=== PATIENT | male | born 1950 | race Caucasian/White ===

== ENCOUNTER 2016-08-28 15:24 | Inpatient (IN) ==
--- NOTE | 2016-08-28 15:47 | Emergency Department Note ---
Disposition Clinical Impression: Acute renal failure, Cough, Diabetes, Weakness, Anemia, Frail elderly, Hyperkalemia Disposition: Admitted As Inpatient [facility]Primary Care Provider[facility] - Forms: ED Satisfaction Letter General Adult HPI - General Chief complaint: ED Recheck/Abnormal Lab/Rx Stated complaint: Renal failure Time Seen by Provider: 08/28/16 15:45 Source: patient, EMS Limitations: no limitations - History of Present Illness HPI Narrative: 66-year-old male reports an emergency department from the [facility]. The patient reports is been feeling weak for the last several days. Testing was done at the Center which revealed what appears to be acute renal failure. The patient describes a previous history of renal insufficiency, there is no history of dialysis in the past. The patient has been somewhat weaker and feels generally tremulous or spasmodic. The patient denies shortness of breath but he has had a cough, he reports his upper abdomen hurts when he coughs. There is no history of coughing up juliet blood leg swelling or pain or syncope. There is no history of anterior chest pain left arm and left jaw pain. There is no history of trauma however the patient reports he felt weak and fell down. There is no history of headache, the patient is not anticoagulated. No trouble walking talking hearing seeing or speaking or slurred speech or unilateral arm weakness or numbness. The patient states he had a remote CVA requiring rehabilitation secondary to right arm weakness. There is no history of juliet fever vomiting or bloody stool he reports he had a few episodes of diarrhea. No history of rash or back pain. No confusion. The patient has been generally weak, went to the [facility], and was noticed to be in acute renal failure. He was transferred to [place] for further evaluation and/or admission. Pain Scale: 5 - Related Data Home Medications Medication Instructions Recorded Confirmed Aspirin 81 mg PO DAILY 08/28/16 08/28/16 Gabapentin [Neurontin] 900 mg PO TID 08/28/16 08/28/16 Hydrochlorothiazide [Microzide] 12.5 mg PO DAILY 08/28/16 08/28/16 Lisinopril [Zestril] 20 mg PO DAILY 08/28/16 08/28/16 Metoprolol XL (24 HR) Succ [Toprol 50 mg PO DAILY 08/28/16 08/28/16 XL] Mupirocin [Bactroban Oint] 1 appl TP TID 08/28/16 08/28/16 Naproxen [Naprosyn] 500 mg PO BID 08/28/16 08/28/16 [place]-3/Dha/Epa/Fish Oil [Fish Oil 1,000 mg PO DAILY 08/28/16 08/28/16 1,000 mg Softgel] Omeprazole [PriLOSEC] 20 mg PO DAILY 08/28/16 08/28/16 Rosuvastatin [Crestor] 40 mg PO HS 08/28/16 08/28/16 Sertraline [Zoloft] 200 mg PO DAILY 08/28/16 08/28/16 Temazepam [Restoril] 15 mg PO HS 08/28/16 08/28/16 Allergies Allergy/AdvReac Type Severity Reaction Status Date / Time Iodinated Contrast Media - AdvReac Anaphylaxis Verified 09/27/15 23:59 Oral and simvastatin AdvReac Cramping Verified 09/27/15 23:59 of the Muscles All systems ED: reviewed and negative except as stated. Past Medical History - Past Medical History Medical history: Reports: coronary artery disease, CVA, diabetes, hyperlipidemia , hypertension, other Psychiatric history: Reports: PTSD - Social History Smoking Status: Former smoker Smokeless Tobacco Status: No Alcohol use: Reports: rarely Drug use: Reports: none Physical Exam - General Limitations: no limitations General appearance: alert, in no apparent distress - Head Head exam: atraumatic, normocephalic, normal inspection - Eye Eye exam: Present: normal appearance, PERRL, EOMI - ENT ENT exam: normal exam, normal oropharynx, mucous membranes moist - Neck Neck exam: Present: normal inspection, full ROM, trachea midline. Absent: tenderness - Chest Chest inspection: Present: symmetric chest wall rise. Absent: tenderness - Respiratory Respiratory exam: Present: normal lung sounds bilaterally. Absent: respiratory distress - Cardiovascular Cardiovascular exam: Present: regular rate, normal rhythm, normal heart sounds - Abdominal Exam Abdominal exam: Present: soft, Non-Tender, normal bowel sounds. Absent: tenderness, distention, guarding, rebound, rigidity, pulsatile mass - Extremities Exam Extremities exam: Present: normal inspection, full ROM, normal capillary refill. Absent: tenderness, pedal edema, joint swelling, calf tenderness - Expanded Lower Extremity Exam Lower leg exam: Absent: Homans' sign Neurovascular/Tendon exam: Absent: motor deficit, sensory deficit, tendon deficit, extremity cold to touch, pallor - Back Exam Back exam: Present: normal inspection, full ROM. Absent: tenderness, CVA tenderness (R), CVA tenderness (L), vertebral tenderness - Neurological Exam Neurological exam: Present: alert, oriented X3, CN II-XII intact. Absent: motor sensory deficit - Psychiatric Psychiatric exam: Present: normal affect, normal mood - Skin Skin exam: Present: warm, dry, intact, normal color. Absent: rash, cyanosis, diaphoresis, erythema, pallor, mottled Course Vital Signs Temperature 98.8 F 08/28/16 15:38 Pulse Rate 64 08/28/16 15:38 Respiratory Rate 14 08/28/16 15:38 Blood Pressure 105/69 08/28/16 15:38 O2 Sat by Pulse Oximetry 94 L 08/28/16 15:38 Temperature 98.8 F 08/28/16 15:38 Pulse Rate 64 08/28/16 15:38 Respiratory Rate 14 08/28/16 15:38 Blood Pressure 105/69 08/28/16 15:38 O2 Sat by Pulse Oximetry 94 L 08/28/16 15:38 Oxygen Delivery Oxygen Delivery Room Air Medical Decision Making - [facility] Narrative Medical decision making narrative: He patient's EKG and [facility], significant elevation in the creatinine in the 6 range as noted. Previous labs here indicate a creatinine of 1.88 about a year ago. The patient is elderly, diabetic, has a history of cardiovascular disease, he has been weak, he is hyperkalemic, and in apparent acute renal failure, in association with his his age, comorbidities, and marked lab lab abnormalities, I thought it would be a appropriate to admit the patient to the hospital. I have reviewed the case with the hospitalist on- call. Further evaluation, diagnostics, and treatment per the admitting team. - Lab Data Lab results reviewed: Yes I reviewed the patient's lab results.
[2016-08-28] MEDS ORDERED: 0.9 % Sodium Chloride 1,000 ML IVC SCH (16:15)
[2016-08-28] MEDS ORDERED: 0.9 % Sodium Chloride 1,000 ML IVC ONE (17:02)
--- NOTE | 2016-08-28 17:43 | Internal Med History&Physical ---
Date of Encounter: 08/28/16 Time of Encounter: 17:40 Assessment and Plan (1) CAD (coronary artery disease) Current visit: Yes Status: Acute no chest pain Qualifiers: Coronary Disease-Associated Artery/Lesion type: unspecified vessel or lesion type [place] vs. transplanted heart: unspecified whether [place] or transplanted heart Associated angina: without angina Qualified Code(s): I25.10 - Atherosclerotic heart disease of [place] coronary artery without angina pectoris (2) Diabetes Current visit: Yes Status: Chronic Qualifiers: Diabetes mellitus type: type 2 Diabetes mellitus complication status: with unspecified complications Diabetes mellitus half-way insulin use: unspecified technical specialist cytogenetics insulin use status Qualified Code(s): E11.8 - Type 2 diabetes mellitus with unspecified complications (3) Acute renal failure Current visit: Yes Status: Acute acute renal failure in diabetic patient last year creatinine was 1.8 consult nephrology and start on iv hydration Qualifiers: Acute renal failure type: unspecified Qualified Code(s): N17.9 - Acute kidney failure, unspecified (4) Diabetes Current visit: Yes Status: Chronic will resume home meds and sliding scale Qualifiers: Diabetes mellitus type: type 2 Diabetes mellitus complication status: with unspecified complications Diabetes mellitus half-way insulin use: unspecified half-way insulin use status Qualified Code(s): E11.8 - Type 2 diabetes mellitus with unspecified complications (5) Hyperkalemia Current visit: Yes Status: Acute check in am Internal Medicine - H&P: HPI Chief complaint: renal failure Admitted From: Intrahospital Transfer Plans for Post Hospital Care: Home History of present illness: Mr. Bowman is a 66 year old male Patient with history of CAD had a CAB vesssels CVA, diabetes, hypercholesterol, hypertension, PTSD and some dementia patient went to the [facility] because he was feeling weak and tired and fatigue and some some cough sometimes productive, sometime is clear no fever or chills labs showed a creatinine above 6.5 last creatinine here was 1.8 and was then sent to the emergency room here for follow evaluation denies any fever or chills . he still makes urine no chest pain. Past Med Surg Social Fam HX - Past Medical History Medical history: coronary artery disease, CVA, diabetes, hyperlipidemia, hypertension, other Psychiatric history: PTSD - Past Surgical History Surgical History: coronary bypass (CABG) - Social History Smoking Status: Former smoker Smokeless Tobacco Status: No Alcohol use: rarely Drug use: none Internal Medicine - H&P: Meds Aspirin 81 mg PO DAILY 08/28/16 [History] Gabapentin [Neurontin] 900 mg PO TID 08/28/16 [History] Hydrochlorothiazide [Microzide] 12.5 mg PO DAILY 08/28/16 [History] Lisinopril [Zestril] 20 mg PO DAILY 08/28/16 [History] Metoprolol XL (24 HR) Succ [Toprol XL] 50 mg PO DAILY 08/28/16 [History] Mupirocin [Bactroban Oint] 1 appl TP TID 08/28/16 [History] Naproxen [Naprosyn] 500 mg PO BID 08/28/16 [History] [place]-3/Dha/Epa/Fish Oil [Fish Oil 1,000 mg Softgel] 1,000 mg PO DAILY 08/28/16 [History] Omeprazole [PriLOSEC] 20 mg PO DAILY 08/28/16 [History] Rosuvastatin [Crestor] 40 mg PO HS 08/28/16 [History] Sertraline [Zoloft] 200 mg PO DAILY 08/28/16 [History] Temazepam [Restoril] 15 mg PO HS 08/28/16 [History] Allergies Iodinated Contrast Media - Oral and Adverse Reaction (Verified 09/27/15 23:59) Anaphylaxis simvastatin Adverse Reaction (Verified 09/27/15 23:59) Cramping of the Muscles All Systems PM: A 10-system review of systems was performed and is negative for pertinent findings except as documented above in the HPI. - Constitutional Constitutional: anorexia, fatigue, lethargy - EENT Eyes: no change in vision, no discharge, no pain, no photophobia Ears: no ear discharge, no ear pain, no tinnitus Nose, mouth and throat: no dysphagia, no nasal discharge, no neck pain, no sore throat - Cardiovascular Cardiovascular ROS IM: no chest pain, no diaphoresis, no dyspnea, no lightheadedness, no palpitations, no syncope - Respiratory Respiratory: cough - Gastrointestinal Gastrointestinal: no abdominal pain, no diarrhea, no hematemesis, no hematochezia, no melena, no nausea, no vomiting - Musculoskeletal Musculoskeletal ROS IM: no numbness, no tingling - Constitutional Vitals: Temp Pulse Resp BP Pulse Ox 98.8 F 64 14 105/69 94 L 08/28/16 15:38 08/28/16 15:38 08/28/16 15:38 08/28/16 15:38 08/28/16 15:38 - Head Head exam: Present: atraumatic, normocephalic - Eye Eye exam: Present: PERRL, conjuntiva pink, sclera anicteric Pupils: Present: PERRL - Neck Neck exam general surgery: Present: supple, trachea midline. Absent: lymphadenopathy - Respiratory Respiratory exam: Present: rhonchi - Cardiovascular Cardiovascular exam: Present: RRR, +S1, +S2. Absent: diastolic murmur, gallop, rubs, systolic murmur - GI/Abdominal GI/Abdominal exam: Present: normal bowel sounds, soft, no peritoneal signs. Absent: distended, tenderness Internal Med - H&P Results - Impressions ITS Impressions Chest X-Ray 08/28/16 15:48 IMPRESSION: No acute cardiopulmonary process. Stable chest x-ray. D/ / 08/28/2016 16:41:20 Radha Yepez MD / earnold Interpreting Provider: Radha Yepez MD
[2016-08-28] MEDS ORDERED: MOM Conc 10 ML UD.LIQ PO PRN (17:50)
[2016-08-28] MEDS ORDERED: Naloxone 0.4 MG/ML INJ IVP PRN (17:50)
[2016-08-28] MEDS ORDERED: D5% in Water 1,000 ML IVC PRN (17:56)
[2016-08-28] MEDS ORDERED: *HR* Dextrose 50 % in Water (Syg) 50 ML SYRINGE IVP PRN (17:56)
[2016-08-28] MEDS ORDERED: Dextrose Gel 15 GM PO PRN ×2 (17:56)
[2016-08-28 18:12] LABS: Bilirubin,Urine Negative (Negative); Blood,Urine Small (Negative); Clarity,Urine Cloudy (Clear); Color,Urine Yellow (Yellow); Glucose,Urine (UA) Normal (Normal); Ketones,Urine Negative (Negative); Leukocyte Esterase,Urine Negative (Negative); Nitrite,Urine Negative (Negative); PH,Urine 5.5 pH Units (5.0-8.0); Protein,Urine 30 mg/dL (Neg-Trace); Specific Gravity,Urine 1.018 (1.010-1.025); Urobilinogen,Urine Normal (Normal)
[2016-08-28 18:14] LABS: Bacteria,Urine None Seen per hpf (None-Few); Hyaline Casts,Urine None Seen per lpf (None-Few); Squamous Epithelial Cell,Urine Many per lpf (None-Few)
[2016-08-28 18:26] LABS: Amorphous Sediment,Urine Few (Few)
[2016-08-28] MEDS ORDERED: Insulin LISPRO 300 UNITS/3 ML VIAL SQ SCH (21:00)
[2016-08-28] MEDS ORDERED: Gabapentin 300 MG CAPSULE PO SCH (21:00)
[2016-08-28] MEDS: 0.9 % Sodium Chloride 1,000 ML IVC SCH (21:53)
[2016-08-28] MEDS: Temazepam 15 MG CAPSULE PO SCH (21:58)
[2016-08-29] MEDS ORDERED: *HR* Enoxaparin 40 MG/0.4 ML SYRINGE SQ SCH (06:00)
[2016-08-29 06:44] LABS: Hemoglobin 10.9 g/dL (12.9-16.9); Mean Corpuscular HGB Conc 32.1 g/dL (31.6-35.5); Mean Corpuscular Hemoglobin 28.7 pg (28.0-33.3); Mean Corpuscular Volume 89.5 fL (83.0-100.0); Mean Platelet Volume 9.2 fL (9.4-12.4); Platelet Count 179 K/mcL (140-400); Red Cell Distribution Width 14.8 % (11.5-14.5)
[2016-08-29 06:57] LABS: Albumin/Globulin Ratio 0.4 (1.1-2.2); Bilirubin,Total 0.3 mg/dL (0.2-1.2); Calcium 9.1 mg/dL (8.6-10.8); Chol/HDL Ratio 11.4 (0-4.9); Globulin 4.4 g/dL (2.4-3.5); Magnesium 1.4 mg/dL (1.6-2.6); Potassium 5.2 mEq/L (3.5-4.5); Total Protein 6.2 g/dL (6.0-8.3)
[2016-08-29 06:58] LABS: Albumin 1.8 g/dL (3.5-5.0)
[2016-08-29] MEDS ORDERED: Insulin LISPRO 300 UNITS/3 ML VIAL SQ SCH (07:30)
[2016-08-29] MEDS ORDERED: (Omega-3/Dha/Epa/Fish Oil [Fish Oil 1,000 Mg Softgel) PO SCH (09:00)
[2016-08-29] MEDS: Gabapentin 100 MG CAPSULE PO SCH ×3 (09:15→21:30)
[2016-08-29] MEDS: Metoprolol XL (24 HR) Succ 50 MG TAB.ER.24H PO SCH (09:15)
[2016-08-29] MEDS: Aspirin 81 MG TAB.CHEW PO SCH (09:15)
[2016-08-29] MEDS: 0.9 % Sodium Chloride 1,000 ML IVC SCH ×2 (10:30→16:06)
[2016-08-29 11:54] LABS: Hemoglobin A1C 5.8 %
[2016-08-29] MEDS: Insulin LISPRO 300 UNITS/3 ML VIAL SQ SCH ×3 (11:58→21:35)
--- NOTE | 2016-08-29 13:55 | Internal Med Progress Note ---
Date of Encounter: 08/29/16 Time of Encounter: 13:52 - Assessment and plan (1) Acute renal failure Current Visit: Yes Status: Acute Assessment and plan: worsened renal fxn compared to last. creatinine today at 5.2 from 1.8 will get records from OR. unclear is this is worsening CKD or acute on chronic renal failure. most likely acute as he recently describes a viral infection. noted good urine output. will follow renal US, continue IVF , avoid nephrotoxins. will order ECHO. will follow with nephrology for further recommendations. Qualifiers: Acute renal failure type: unspecified Qualified Code(s): N17.9 - Acute kidney failure, unspecified (2) Hyperkalemia Current Visit: Yes Status: Acute Assessment and plan: 2/2 acute renal failure 5.2 today, will monitro and repeat tomm morn. (3) CAD (coronary artery disease) Current Visit: Yes Status: Acute Assessment and plan: will continue the asa,bb and statin. denies any chest pain at this time Qualifiers: Coronary Disease-Associated Artery/Lesion type: unspecified vessel or lesion type [place] vs. transplanted heart: unspecified whether [place] or transplanted heart Associated angina: without angina Qualified Code(s): I25.10 - Atherosclerotic heart disease of [place] coronary artery without angina pectoris - Time Spent With Patient 25 - 35 minutes - Subjective Interval history: Patient seen at the bedside, admitted for acute renal failure. at the bedside, gives history of recent cold and generalized weakness. No history of decreased urine output or hematuria. Denies any fever, nausea or vomiting. History of diarrhea for a couple of days before admission, however that has stopped. Renal has been consulted for possible acute on chronic renal failure. - Constitutional Vitals: Temp Pulse Resp BP Pulse Ox 99.1 F 73 18 105/53 94 L 08/29/16 11:14 08/29/16 11:14 08/29/16 11:14 08/29/16 11:14 08/29/16 11:14 General appearance: Present: A&O X 3, no acute distress Exam: - Eye Eye exam: Present: PERRL, conjuntiva pink, sclera anicteric Pupils: Present: PERRL - Neck Neck exam general surgery: Present: supple, trachea midline. Absent: lymphadenopathy - Respiratory Respiratory exam: Present: b/l clear, no added sounds - Cardiovascular Cardiovascular exam: Present: RRR, +S1, +S2. Absent: diastolic murmur, gallop, rubs, systolic murmur - GI/Abdominal GI/Abdominal exam: Present: normal bowel sounds, soft, no peritoneal signs. Absent: distended, tenderness ext- no edema Internal Medicine: Result - Labs CBC & Chem 7: 08/29/16 06:09 08/29/16 06:09 Labs: Short CBC 08/29/16 Range/Units 06:09 WBC 9.5 (4.3-11.1) K/mcL Hgb 10.9 L (12.9-16.9) g/dL Hct 34.0 L (37.5-50.1) % Plt Count 179 (140-400) K/mcL BMP 08/29/16 06:09 Sodium 138 Potassium 5.2 H Chloride 107 Carbon Dioxide 19 BUN 73 H Creatinine 5.23 H Glucose 136 H Calcium 9.1 Liver Function 08/29/16 Range/Units 06:09 Total Bilirubin 0.3 (0.2-1.2) mg/dL AST 72 H (5-34) Units/L ALT 38 (0-55) Units/L Alkaline Phosphatase 64 (38-126) Units/L Albumin 1.8 L (3.5-5.0) g/dL Consult Discharge Plan - Plan [facility]errals: [facility] [Primary Care Provider] -
--- NOTE | 2016-08-29 14:17 | Nephrology Consult Note ---
Date of Encounter: 08/29/16 Time of Encounter: 11:30 Assessment and Plan (1) ANASTACIA (acute kidney injury) Current Visit: Yes Status: Acute Elevated SCr in the setting of recent viral infection. May have underlying CKD as well Agree with IVF, UOP improving Avoid nephrotoxins if possible No acute indication for HIDE SPREADER at this time but discussed at [facility] with patient and the possibility Will obtain US of kidney Will check urine for sodium, eosinophils, microalbumin and protein with creatinie ratio Will check CPK and uric acid levels Will SPEP and UPEP Will check PTH and vitamin D evels Will check STEVE and complements (2) Hyperkalemia Current Visit: Yes Status: Acute Potassium elevated at 5.2 due to ANASTACIA, renal diet advised History of Present Illness - Reason for Consult Consult date: 08/29/16 Acute Kidney Injury, Chronic Kidney Disease Requesting physician: Bradley Dwyer - History of Present Illness 66 y o male with PMH of DM< HTN, CAD s/p CABD, CVA and ?CKD admitted as a transfer from the [facility] where he presented for worsening fatigue and dizziness for the past week. Per , patient had been taking care of her when she was sick with URI some 2-3 weeks and he subsequently developed similar symptoms a wek after but got progressively weaker in the week. SCr noted at 6.5 at the [facility] improving to 5.8, GFR 13 today. Previous records at [place] some 5 years ago noted SCr at 1.8. Patient denied any prior nephrology contact or any renal dysfunction in the recent past but does remember back in 2008 that he had ANASTACIA. No urinary sxs. No NSAIDs use. No N/V but one day of diarrhea Past Med Surg Social Fam HX - Past Medical History Medical history: coronary artery disease, diabetes, hyperlipidemia, hypertension , other Psychiatric history: PTSD - Past Surgical History Surgical History: coronary bypass (CABG) - Social History Smoking Status: Former smoker Smokeless Tobacco Status: No Alcohol use: none, rarely Drug use: none Medications and Allergies Aspirin 81 mg PO DAILY 08/28/16 [History] Gabapentin [Neurontin] 900 mg PO TID 08/28/16 [History] Hydrochlorothiazide [Microzide] 12.5 mg PO DAILY 08/28/16 [History] Lisinopril [Zestril] 20 mg PO DAILY 08/28/16 [History] Metoprolol XL (24 HR) Succ [Toprol XL] 50 mg PO DAILY 08/28/16 [History] Mupirocin [Bactroban Oint] 1 appl TP TID 08/28/16 [History] Naproxen [Naprosyn] 500 mg PO BID 08/28/16 [History] [place]-3/Dha/Epa/Fish Oil [Fish Oil 1,000 mg Softgel] 1,000 mg PO DAILY 08/28/16 [History] Omeprazole [PriLOSEC] 20 mg PO DAILY 08/28/16 [History] Rosuvastatin [Crestor] 40 mg PO HS 08/28/16 [History] Sertraline [Zoloft] 200 mg PO DAILY 08/28/16 [History] Temazepam [Restoril] 15 mg PO HS 08/28/16 [History] Allergies Iodinated Contrast Media - Oral and Adverse Reaction (Verified 09/27/15 23:59) Anaphylaxis simvastatin Adverse Reaction (Verified 09/27/15 23:59) Cramping of the Muscles Exam - Vital Signs Vital signs: Initial Vital Signs Temp Pulse Resp BP Pulse Ox 98.8 F 64 14 105/69 94 L 08/28/16 15:38 08/28/16 15:38 08/28/16 15:38 08/28/16 15:38 08/28/16 15:38 Vital Signs - Last 8 Hours Temp Pulse Resp BP Pulse Ox 08/29/16 11:14 99.1 F 73 18 105/53 94 L 08/29/16 07:18 98.0 F 69 16 114/68 93 L Intake and Output 08/28/16 08/29/16 08/29/16 23:59 07:59 15:59 Intake Total 1000 / 1000 1240 / 1240 Output Total 500 / 500 1400 / 1400 600 / 600 Balance 500 / 500 -1400 / -1400 640 / 640 Intake: IV Fluids 1000 / 1000 1000 / 1000 0.9 % Sodium Chloride 1, 1000 / 1000 1000 / 1000 000 ML @ 100 mls/hr IVC . Q10H [facility] Rx#:[id number] Oral 240 / 240 Output: Urine 500 / 500 Catheter 1400 / 1400 600 / 600 Other: Meal Dinner Lunch Percent of Meal Consumed 100% 50% Weight 75.568 kg Blood Glucose* 108 137 403 - General Appearance General appearance: well-developed, well-nourished, fatigue EENT: ATNC, mucous membranes dry Neck: no JVD, supple Respiratory: clear (ant bilat) Cardiology: no edema, normal S1, normal S2 Gastrointestinal: no tenderness, no guarding Integumentary: warm and dry Musculoskeletal: no deformities Psychiatric: mood/affect appropriate, cooperative Results - Lab Results 08/29/16 06:09 08/29/16 06:09 Most recent lab results Calcium 9.1 mg/dL (8.6-10.8) 08/29/16 06:09 Magnesium 1.4 mg/dL (1.6-2.6) L 08/29/16 06:09 Consult Discharge Plan - Plan Referrals: [facility] [Primary Care Provider] -
[2016-08-29] MEDS: *HR* Heparin 5,000 UNIT/ML VIAL SQ SCH (16:54)
[2016-08-29] MEDS: Temazepam 15 MG CAPSULE PO SCH (21:30)
[2016-08-30 04:01] LABS: Bilirubin,Urine Negative (Negative); Blood,Urine Large (Negative); Clarity,Urine Cloudy (Clear); Color,Urine Yellow (Yellow); Glucose,Urine (UA) Normal (Normal); Ketones,Urine Negative (Negative); Leukocyte Esterase,Urine Negative (Negative); Nitrite,Urine Negative (Negative); Protein,Urine 30 mg/dL (Neg-Trace); Specific Gravity,Urine 1.013 (1.010-1.025); Urobilinogen,Urine Normal (Normal)
[2016-08-30 04:04] LABS: Hyaline Casts,Urine None Seen per lpf (None-Few); Squamous Epithelial Cell,Urine Few per lpf (None-Few); WBC,Urine 0-3 per hpf (0-3)
[2016-08-30 04:11] LABS: Protein/Creatinine Ratio,Urine 0.76 mg/mg (0-0.20)
[2016-08-30 04:25] LABS: Bacteria,Urine Few per hpf (None-Few)
[2016-08-30] MEDS: *HR* Heparin 5,000 UNIT/ML VIAL SQ SCH ×2 (06:27→17:09)
[2016-08-30] MEDS: Insulin LISPRO 300 UNITS/3 ML VIAL SQ SCH ×4 (07:17→21:55)
--- NOTE | 2016-08-30 08:42 | ECHO - Doppler Report ---
Echocardiogram Name: Derek Bowman Date of Study: 08/29/2016 Date: 1950 Ht: 68.0 in Medical Record#: [id number] Age: 66 Wt: 166.0 lb Gender: Male BSA: 1.89 Order #: [id number] Location: [facility] Room #: 2A12 Reading Physician: Rasta Oropeza MD, [facility] Physical Fitness Trainer: Graciela Gooden RDCS Ordering Physician: Charles Saul MD Primary Physician: [facility] Indications: Evaluate EF, Acute Renal Failure Impressions: Normal LV systolic function, LVEF 55-60%. Atypical septal motion consistent with prior cardiac surgery. Normal right ventricular size and function. No significant valvular dysfunction. No evidence of pulmonary hypertension. Left Ventricular Wall Motion: Rest Echo Findings All wall segments showed normal motion. Findings: Study Quality * Suboptimal echo windows. ECG Findings * Normal sinus rhythm. Left Ventricle * Normal LV systolic function, LVEF 55-60%. * Atypical septal motion consistent with prior cardiac surgery. * Normal LV chamber size, wall thickness and function. * Indeterminate diastolic function. Right Ventricle * Normal right ventricular size and function. Left Atrium * Normal left atrial size. Right Atrium * Normal right atrial size. Aorta * Normally sized aortic root. Pericardium * There is no pericardial effusion present. IVC * Normal IVC dimensions and inspiratory collapse. Aortic Valve * Trileaflet aortic valve. * No aortic stenosis. * No aortic regurgitation. Mitral Valve * Normal mitral valve structure. * No mitral stenosis. * Trace mitral regurgitation. Tricuspid Valve * Normal tricuspid valve structure. * No tricuspid stenosis. * Trace tricuspid regurgitation. * No evidence of pulmonary hypertension. Pulmonic Valve * Normal pulmonic valve structure. * No pulmonic stenosis. * No pulmonic regurgitation. History Hypertension Diabetes Hypercholesteremia History of CAD/PTCA Coronary Artery Bypass Graft Measurements: BP: 103/ 50 2D Normal Values RVIDd: 2.97 cm IVSd: .88 cm 0.6 - 1.0 cm LVIDd: 5.20 cm 3.7 - 5.6 cm LVPWd: .98 cm 0.6 - 1.1 cm LVIDs: 2.89 cm 1.5 - 3.6 cm AO: 2.90 cm < 4.0 cm %FS: 44.40 cm >25 % LA volume: 44 Mitral Valve Peak E:1.13 m/sec Peak A:1.08 m/sec E/A Ratio:1 Tricuspid Valve TV Regurg Peak Grad: 30.00mmHg TV Regurg Peak Buck: 2.76m/sec Updated by Rasta Oropeza MD, [facility] on 08/30/2016 8:36:16 AM electronically signed on 08/30/2016 8:36:46 AM with status of Final Wall Motion [place]: 1=Normal, 2=Hypokinesis, 3=Akinesis, 4=Dyskinesis, 5=Aneurysmal, 6=Hyperkinetic, X=Not Visualized (Blank)=Missing
[2016-08-30] MEDS: Aspirin 81 MG TAB.CHEW PO SCH (09:09)
[2016-08-30] MEDS: Gabapentin 100 MG CAPSULE PO SCH ×3 (09:10→21:53)
[2016-08-30] MEDS: Metoprolol XL (24 HR) Succ 50 MG TAB.ER.24H PO SCH (09:10)
[2016-08-30] MEDS: 0.9 % Sodium Chloride 1,000 ML IVC SCH ×3 (09:16→20:00)
[2016-08-30 09:55] LABS: Albumin/Globulin Ratio 0.4 (1.1-2.2); Bilirubin,Total 0.3 mg/dL (0.2-1.2); Calcium 8.8 mg/dL (8.6-10.8); Globulin 4.5 g/dL (2.4-3.5); Potassium 4.9 mEq/L (3.5-4.5); Total Protein 6.1 g/dL (6.0-8.3)
[2016-08-30 09:56] LABS: Albumin 1.6 g/dL (3.5-5.0)
--- NOTE | 2016-08-30 12:56 | Internal Med Progress Note ---
Date of Encounter: 08/29/16 Time of Encounter: 12:52 - Assessment and plan (1) Acute renal failure Current Visit: Yes Status: Acute Assessment and plan: kidney fxn improved today. records from [place] show creatinine of 1.8 which was done last yr most likely acute as he recently describes a viral infection and recent diarrhea. noted good urine output. renal US showed unremarkable kidneys, continue IVF , avoid nephrotoxins. ECHO shows normal LVEF will follow with nephrology for further recommendations. Qualifiers: Acute renal failure type: unspecified Qualified Code(s): N17.9 - Acute kidney failure, unspecified (2) Hyperkalemia Current Visit: Yes Status: Acute Assessment and plan: 2/2 acute renal failure beter today, will monitro (3) CAD (coronary artery disease) Current Visit: Yes Status: Acute Assessment and plan: will continue the asa,bb and statin. denies any chest pain at this time Qualifiers: Coronary Disease-Associated Artery/Lesion type: unspecified vessel or lesion type [place] vs. transplanted heart: unspecified whether [place] or transplanted heart Associated angina: without angina Qualified Code(s): I25.10 - Atherosclerotic heart disease of [place] coronary artery without angina pectoris - Time Spent With Patient 25 - 35 minutes - Subjective Interval history: Patient seen at the bedside, admitted for acute renal failure. reports that he feels much better today, good urine output. at the bedside, gives history of recent cold and generalized weakness. No history of decreased urine output or hematuria. Denies any fever, nausea or vomiting. History of diarrhea for a couple of days before admission, however that has stopped. Renal has been consulted for possible acute on chronic renal failure. - Constitutional Vitals: Temp Pulse Resp BP Pulse Ox 98.6 F 71 16 105/64 92 L 08/30/16 11:07 08/30/16 11:07 08/30/16 11:07 08/30/16 11:07 08/30/16 11:07 General appearance: Present: A&O X 3, no acute distress Exam: - Eye Eye exam: Present: PERRL, conjuntiva pink, sclera anicteric Pupils: Present: PERRL - Neck Neck exam general surgery: Present: supple, trachea midline. Absent: lymphadenopathy - Respiratory Respiratory exam: Present: b/l mild basal creptns, no wheezing - Cardiovascular Cardiovascular exam: Present: RRR, +S1, +S2. Absent: diastolic murmur, gallop, rubs, systolic murmur - GI/Abdominal GI/Abdominal exam: Present: normal bowel sounds, soft, no peritoneal signs. Absent: distended, tenderness ext- no edema Internal Medicine: Result - Labs CBC & Chem 7: 08/29/16 06:09 08/30/16 09:36 Labs: BMP 08/30/16 09:36 Sodium 137 Potassium 4.9 H Chloride 109 Carbon Dioxide 16 L BUN 65 H Creatinine 3.93 H Glucose 151 H Calcium 8.8 Liver Function 08/30/16 Range/Units 09:36 Total Bilirubin 0.3 (0.2-1.2) mg/dL AST 83 H (5-34) Units/L ALT 46 (0-55) Units/L Alkaline Phosphatase 67 (38-126) Units/L Albumin 1.6 L (3.5-5.0) g/dL Urine 08/30/16 Range/Units 03:45 Urine Color Yellow (Yellow) Urine Clarity Cloudy A (Clear) Urine pH 5.0 (5.0-8.0) pH Units Ur Specific [place] 1.013 (1.010-1.025) Urine Protein 30 H (Neg-Trace) mg/dL Urine Glucose (UA) Normal (Normal) mg/dL - Impressions Impressions Retroperitoneum Ultrasound 08/29/16 17:00 IMPRESSION: 1. 3.2 cm simple right renal cyst. The kidneys are otherwise normal in sonographic appearance bilaterally. 2. Unremarkable sonographic appearance of the urinary bladder, containing a Lopez catheter. There is a moderate to severe postvoid residual of 76%. 3. Mild prostatomegaly. D/ / 08/29/2016 17:51:09 Oskar Pimentel MD / [email or web address] Interpreting Provider: Oskar Pimentel MD Consult Discharge Plan - Plan [facility]errals: [facility] [Primary Care Provider] -
--- NOTE | 2016-08-30 15:25 | Nephrology Progress Note ---
Date of Encounter: 08/29/16 Time of Encounter: 10:35 - Assessment and Plan (1) ANASTACIA (acute kidney injury) Current Visit: Yes Status: Acute SCr improving at 3.93, no acute indication for TECHNOLOGY DEVELOPMENT INTERN at this time. Continue IVF Continue to avoid nephrotoxins if possible US of kidney results reviewed with patient and : no hydronephrosis with mild prostatomegaly noted with PVR. melissa in place at present (2) Hyperkalemia Current Visit: Yes Status: Acute Potassium improving from 5.2 to 4.9, will monitor Subjective Interval history: Pt seen and examined with present at bedside. Feels a little better today.[facility] recored showed SCr of 1.13, GFR >60 as of january 2016 Objective - Vital Signs Vital signs: Vital Signs Temp Pulse Resp BP Pulse Ox 08/30/16 11:07 98.6 F 71 16 105/64 92 L 08/30/16 07:07 98.7 F 66 15 104/64 91 L 08/30/16 03:53 97.4 F L 65 20 110/59 93 L 08/29/16 23:35 98.3 F 71 18 131/66 90 L 08/29/16 21:06 99.3 F 72 18 114/66 94 L Intake and Output 08/29/16 08/30/16 08/30/16 23:59 07:59 15:59 Intake Total 1000 / 1000 340 / 340 Output Total 1300 / 1300 800 / 800 Balance 1000 / 1000 -1300 / -1300 -460 / -460 Intake: IV Fluids 1000 / 1000 0.9 % Sodium Chloride 1, 1000 / 1000 000 ML @ 100 mls/hr IVC . Q10H COUNT INCLUDES [facility] Rx#:[id number] Oral 340 / 340 Output: Catheter 1300 / 1300 800 / 800 Other: Meal Dinner Lunch Percent of Meal Consumed 60% 100% Stool Size Large Stool Consistency loose soft # Bowel Movements 1 Weight 76.204 kg Blood Glucose* 117 119 147 Patient Weight 08/30/16 23:59 Weight 76.204 kg - General Appearance General appearance: Present: well-developed, well-nourished (NAD) EENT: Present: ATNC, mucous membranes moist Neck: Present: no JVD, supple Cardiology: Present: no edema, normal S1, normal S2 Gastrointestinal: Present: no tenderness, no guarding Integumentary: Present: warm and dry Neurologic: Present: no focal deficit Musculoskeletal: Present: no deformities Psychiatric: Present: mood/affect appropriate, cooperative - Lab 08/29/16 06:09 08/30/16 09:36 Most recent lab results Calcium 8.8 mg/dL (8.6-10.8) 08/30/16 09:36 Magnesium 1.4 mg/dL (1.6-2.6) L 08/29/16 06:09 Urine Creatinine 46 mg/dL 08/30/16 03:45 Urine Sodium 72.0 mEq/L 08/30/16 03:45 Urine Total Protein 35 mg/dL (1-14) H 08/30/16 03:45 Consult Discharge Plan - Plan Referrals: [facility] [Primary Care Provider] -
[2016-08-30] MEDS: Temazepam 15 MG CAPSULE PO SCH (21:53)
[2016-08-30] MEDS: Benzonatate 100 MG CAPSULE PO PRN (23:35)
[2016-08-31 05:31] LABS: Hematocrit 31.4 % (37.5-50.1); Hemoglobin 10.3 g/dL (12.9-16.9); Mean Corpuscular HGB Conc 32.8 g/dL (31.6-35.5); Mean Corpuscular Hemoglobin 28.9 pg (28.0-33.3); Mean Corpuscular Volume 88.2 fL (83.0-100.0); Monocytes # 0.8 K/mcL (0.0-1.3); Platelet Count 203 K/mcL (140-400); Red Blood Count 3.56 M/mcL (4.19-5.50); Red Cell Distribution Width 14.5 % (11.5-14.5)
[2016-08-31] MEDS: *HR* Heparin 5,000 UNIT/ML VIAL SQ SCH ×2 (05:33→18:46)
[2016-08-31] MEDS: 0.9 % Sodium Chloride 1,000 ML IVC SCH ×2 (05:33→16:09)
[2016-08-31 05:44] LABS: Calcium 8.6 mg/dL (8.6-10.8); Potassium 4.3 mEq/L (3.5-4.5)
[2016-08-31 05:56] LABS: Neutrophils # 8.4 K/mcL (1.6-8.9); Platelet Estimate Normal (Normal); Reactive Lymphocytes Present (Not Present)
[2016-08-31] MEDS: Insulin LISPRO 300 UNITS/3 ML VIAL SQ SCH ×4 (07:58→20:42)
[2016-08-31] MEDS: Metoprolol XL (24 HR) Succ 50 MG TAB.ER.24H PO SCH (09:09)
[2016-08-31] MEDS: Gabapentin 100 MG CAPSULE PO SCH ×3 (09:09→20:00)
[2016-08-31] MEDS: Aspirin 81 MG TAB.CHEW PO SCH (09:10)
--- NOTE | 2016-08-31 13:09 | Internal Med Progress Note ---
Date of Encounter: 08/29/16 Time of Encounter: 13:01 - Assessment and plan (1) Acute renal failure Current Visit: Yes Status: Acute Assessment and plan: kidney fxn improved today. records from [place] show creatinine of 1.8 which was done last yr most likely acute as he recently describes a viral infection and recent diarrhea. noted good urine output. renal US showed unremarkable kidneys, continue IVF , avoid nephrotoxins. ECHO shows normal LVEF will repeat chem tomm, if repeat creat is trending down, will possible dc. Qualifiers: Acute renal failure type: unspecified Qualified Code(s): N17.9 - Acute kidney failure, unspecified (2) Hyperkalemia Current Visit: Yes Status: Acute Assessment and plan: 2/2 acute renal failure beter today, will monitro (3) CAD (coronary artery disease) Current Visit: Yes Status: Acute Assessment and plan: will continue the asa,bb and statin. denies any chest pain at this time Qualifiers: Coronary Disease-Associated Artery/Lesion type: unspecified vessel or lesion type [place] vs. transplanted heart: unspecified whether [place] or transplanted heart Associated angina: without angina Qualified Code(s): I25.10 - Atherosclerotic heart disease of [place] coronary artery without angina pectoris - Time Spent With Patient 25 - 35 minutes - Subjective Interval history: Patient seen at the bedside, admitted for acute renal failure. reports that he feels much better today, good urine output, kidney fxn improving at the bedside, gives history of recent cold and generalized weakness. No history of decreased urine output or hematuria. Denies any fever, nausea or vomiting. History of diarrhea for a couple of days before admission, however that has stopped. Renal has been consulted for possible acute on chronic renal failure. - Constitutional Vitals: Temp Pulse Resp BP Pulse Ox 98.7 F 75 18 129/78 96 08/31/16 11:20 08/31/16 11:20 08/31/16 11:20 08/31/16 11:20 08/31/16 12:33 General appearance: Present: A&O X 3, no acute distress Exam: - Eye Eye exam: Present: PERRL, conjuntiva pink, sclera anicteric Pupils: Present: PERRL - Neck Neck exam general surgery: Present: supple, trachea midline. Absent: lymphadenopathy - Respiratory Respiratory exam: Present: b/l mild basal creptns, no wheezing - Cardiovascular Cardiovascular exam: Present: RRR, +S1, +S2. Absent: diastolic murmur, gallop, rubs, systolic murmur - GI/Abdominal GI/Abdominal exam: Present: normal bowel sounds, soft, no peritoneal signs. Absent: distended, tenderness ext- no edema Internal Medicine: Result - Labs CBC & Chem 7: 08/31/16 04:38 08/31/16 04:38 Labs: Short CBC 08/31/16 Range/Units 04:38 WBC 10.2 (4.3-11.1) K/mcL Hgb 10.3 L (12.9-16.9) g/dL Hct 31.4 L (37.5-50.1) % Plt Count 203 (140-400) K/mcL Neutrophils # 8.4 (1.6-8.9) K/mcL BMP 08/31/16 04:38 Sodium 138 Potassium 4.3 Chloride 109 Carbon Dioxide 21 BUN 54 H Creatinine 3.09 H Glucose 116 H Calcium 8.6 Consult Discharge Plan - Plan Referrals: [facility] [Primary Care Provider] -
--- NOTE | 2016-08-31 14:08 | Nephrology Progress Note ---
Date of Encounter: 08/31/16 Time of Encounter: 11:00 - Assessment and Plan (1) ANASTACIA (acute kidney injury) Current Visit: Yes Status: Acute SCr continues to improve at 3.09, GFR 20. No acute indication for RISK MANAGEMENT SPECIALIST at this time. Continue IVF for another 24hrs Continue to avoid nephrotoxins if possible UOP great at 2600cc in the past 24hrs PTH WNL, vitamin D slightly low, OTC supplements recommended for outpatient (2) Hyperkalemia Current Visit: Yes Status: Acute Potassium normalized at 4.3 Subjective Interval history: Pt seen and examined with present at bedside. Feels better. No new complaints Objective - Vital Signs Vital signs: Vital Signs Temp Pulse Resp BP Pulse Ox 08/31/16 12:33 96 08/31/16 11:20 98.7 F 75 18 129/78 89 08/31/16 09:11 95 08/31/16 06:55 98.6 F 69 16 114/68 95 08/31/16 06:10 98.6 F 68 18 123/70 96 08/31/16 01:25 97.9 F 67 18 118/69 90 L 08/30/16 21:22 99.2 F 82 20 143/72 93 L 08/30/16 15:55 98.4 F 78 14 117/62 89 L Intake and Output 08/30/16 08/31/16 08/31/16 23:59 07:59 15:59 Intake Total 1120 / 1120 1000 / 1000 270 / 270 Output Total 600 / 600 950 / 950 650 / 650 Balance 520 / 520 50 / 50 -380 / -380 Intake: IV Fluids 1000 / 1000 1000 / 1000 0.9 % Sodium Chloride 1, 1000 / 1000 1000 / 1000 000 ML @ 100 mls/hr IVC . Q10H [facility] Rx#:[id number] Oral 120 / 120 270 / 270 Output: Urine 600 / 600 0 / 0 Catheter 950 / 950 650 / 650 Other: Meal Dinner Lunch Percent of Meal Consumed 50% 10% Blood Glucose* 144 112 124 - General Appearance General appearance: Present: well-developed, well-nourished (NAD) EENT: Present: ATNC, mucous membranes moist Neck: Present: no JVD, supple Respiratory: Present: clear (ant bilat) Cardiology: Present: no edema, normal S1, normal S2 Gastrointestinal: Present: no tenderness, no guarding Integumentary: Present: warm and dry Neurologic: Present: no focal deficit Musculoskeletal: Present: no deformities Psychiatric: Present: mood/affect appropriate - Lab 08/31/16 04:38 08/31/16 04:38 Most recent lab results Calcium 8.6 mg/dL (8.6-10.8) 08/31/16 04:38 Magnesium 1.4 mg/dL (1.6-2.6) L 08/29/16 06:09 Urine Creatinine 46 mg/dL 08/30/16 03:45 Urine Sodium 72.0 mEq/L 08/30/16 03:45 Urine Total Protein 35 mg/dL (1-14) H 08/30/16 03:45 Consult Discharge Plan - Plan Referrals: [facility] [Primary Care Provider] -
[2016-08-31] MEDS: Benzonatate 100 MG CAPSULE PO PRN (16:13)
[2016-08-31] MEDS: Temazepam 15 MG CAPSULE PO SCH (20:00)
[2016-09-01] MEDS: 0.9 % Sodium Chloride 1,000 ML IVC SCH (02:10)
[2016-09-01 03:37] LABS: Urine Collection Duration RANDOM hr; Urine Collection Volume RANDOM mL
[2016-09-01] MEDS: *HR* Heparin 5,000 UNIT/ML VIAL SQ SCH (05:53)
[2016-09-01] MEDS: Insulin LISPRO 300 UNITS/3 ML VIAL SQ SCH ×3 (07:44→12:10)
[2016-09-01] MEDS: Aspirin 81 MG TAB.CHEW PO SCH (09:00)
[2016-09-01] MEDS: Metoprolol XL (24 HR) Succ 50 MG TAB.ER.24H PO SCH (09:00)
[2016-09-01] MEDS: Gabapentin 100 MG CAPSULE PO SCH ×2 (09:00→14:14)
[2016-09-01 09:46] LABS: Basophils % 0.3 %; Eosinophils % 0.4 %; Hematocrit 32.6 % (37.5-50.1); Hemoglobin 10.7 g/dL (12.9-16.9); Immature Granulocytes % 2.1 % (0-4); Lymphocytes # 0.7 K/mcL (0.6-4.6); Lymphocytes % 6.9 %; Mean Corpuscular HGB Conc 32.8 g/dL (31.6-35.5); Mean Corpuscular Hemoglobin 28.8 pg (28.0-33.3); Mean Corpuscular Volume 87.9 fL (83.0-100.0); Mean Platelet Volume 8.7 fL (9.4-12.4); Monocytes # 0.7 K/mcL (0.0-1.3); Monocytes % 6.5 %; Neutrophils # 8.9 K/mcL (1.6-8.9); Platelet Count 221 K/mcL (140-400); Red Blood Count 3.71 M/mcL (4.19-5.50); Red Cell Distribution Width 14.2 % (11.5-14.5); Segmented Neutrophils % 83.8 %
[2016-09-01 10:00] LABS: Calcium 8.9 mg/dL (8.6-10.8); Potassium 4.4 mEq/L (3.5-4.5)
--- NOTE | 2016-09-01 10:49 | Nephrology Progress Note ---
Date of Encounter: 09/01/16 Time of Encounter: 10:45 - Assessment and Plan (1) ANASTACIA (acute kidney injury) Current Visit: Yes Status: Acute SCr continues to improve at 2.14, GFR 31. Okay to discharge from a renal standpoint given improving SCr though not at bedside yet Continue po fluids on dischrage Continue to avoid nephrotoxins if possible UOP great at 2250 BMp in 1 week on discharge with followup with me within 4 weeks (2) Hyperkalemia Current Visit: Yes Status: Resolved Potassium resolved Subjective Interval history: Pt seen and examined with present at bedside. Feels better. No new complaints Objective - Vital Signs Vital signs: Vital Signs Temp Pulse Resp BP Pulse Ox 09/01/16 07:44 97 09/01/16 07:26 98.3 F 70 18 135/66 95 09/01/16 04:58 98.3 F 73 18 136/65 97 09/01/16 00:51 99 F 73 16 146/76 96 08/31/16 20:35 99.6 F 71 16 145/70 97 08/31/16 16:02 99.0 F 76 16 128/68 95 08/31/16 12:33 96 08/31/16 11:20 98.7 F 75 18 129/78 89 Intake and Output 08/31/16 09/01/16 09/01/16 23:59 07:59 15:59 Intake Total 50 / 50 1000 / 1000 120 / 120 Output Total 650 / 650 1150 / 1150 Balance -600 / -600 -150 / -150 120 / 120 Intake: IV Fluids 1000 / 1000 0.9 % Sodium Chloride 1, 1000 / 1000 000 ML @ 100 mls/hr IVC . Q10H [facility] Rx#:[id number] Oral 50 / 50 120 / 120 Output: Urine 0 / 0 1150 / 1150 Catheter 650 / 650 Other: Meal Breakfast Percent of Meal Consumed 0% Weight 76.4 kg Blood Glucose* 141 97 Patient Weight 09/01/16 23:59 Weight 76.4 kg - General Appearance General appearance: Present: well-developed, well-nourished (NAD) EENT: Present: ATNC, mucous membranes moist Neck: Present: no JVD, supple Respiratory: Present: clear Cardiology: Present: no edema, normal S1, normal S2 Gastrointestinal: Present: no tenderness, no guarding Integumentary: Present: warm and dry Neurologic: Present: no focal deficit Musculoskeletal: Present: no deformities Psychiatric: Present: mood/affect appropriate - Lab 09/01/16 09:22 09/01/16 09:22 Most recent lab results Calcium 8.9 mg/dL (8.6-10.8) 09/01/16 09:22 Magnesium 1.4 mg/dL (1.6-2.6) L 08/29/16 06:09 Urine Creatinine 46 mg/dL 08/30/16 03:45 Urine Sodium 72.0 mEq/L 08/30/16 03:45 Urine Total Protein 35 mg/dL (1-14) H 08/30/16 03:45 Consult Discharge Plan - Plan Referrals: [facility] [Primary Care Provider] -
[2016-09-01 11:35] VITALS: BP 137/65
--- NOTE | 2016-09-01 11:35 | Discharge Summary ---
Date of Encounter: 09/01/16 Time of Encounter: 11:28 - Discharge Diagnosis (1) Acute renal failure Priority: Primary Status: Acute Qualifiers: Acute renal failure type: unspecified Qualified Code(s): N17.9 - Acute kidney failure, unspecified (2) Hyperkalemia Priority: Primary Status: Resolved (3) CAD (coronary artery disease) Priority: Secondary Status: Acute Qualifiers: Coronary Disease-Associated Artery/Lesion type: unspecified vessel or lesion type [place] vs. transplanted heart: unspecified whether [place] or transplanted heart Associated angina: without angina Qualified Code(s): I25.10 - Atherosclerotic heart disease of [place] coronary artery without angina pectoris - Discharge Medications Home Medications: Aspirin 81 mg PO DAILY 08/28/16 [History] Gabapentin [Neurontin] 900 mg PO TID 08/28/16 [History] Lisinopril [Zestril] 20 mg PO DAILY 08/28/16 [History] Metoprolol XL (24 HR) Succ [Toprol Xl] 50 mg PO DAILY 08/28/16 [History] Mupirocin [Bactroban Oint] 1 appl TP TID 08/28/16 [History] Naproxen [Naprosyn] 500 mg PO BID 08/28/16 [History] [place]-3/Dha/Epa/Fish Oil [Fish Oil 1,000 mg Softgel] 1,000 mg PO DAILY 08/28/16 [History] Omeprazole [PriLOSEC] 20 mg PO DAILY 08/28/16 [History] Rosuvastatin [Crestor] 40 mg PO HS 08/28/16 [History] Sertraline [Zoloft] 200 mg PO DAILY 08/28/16 [History] Temazepam [Restoril] 15 mg PO HS 08/28/16 [History] Allergies/Adverse Reactions: Allergies Iodinated Contrast Media - Oral and Adverse Reaction (Verified 09/27/15 23:59) Anaphylaxis simvastatin Adverse Reaction (Verified 09/27/15 23:59) Cramping of the Muscles Procedures/tests Complete & Pending: Procedures Performed prior 72 hours Category Date Time Status Retroperitoneal Ultrasound - Complete [US Exams 08/29/16 17:00 Completed retroperitoneal comp] [US] Routine EV echocardiogram Routine Y 08/29/16 11:52 Completed Date of admission: 08/28/16 18:13 [facility] physician[facility] Discharging clinician: Shanna Saul Anticipated date of discharge: 09/01/16 - Patient Status Disposition: Home, Self-Care Condition: Fair Functional capacity at discharge: independent ambulation Overall status at discharge: patient is back to baseline - Discharge Instructions Follow Up With: [facility] [Primary Care Provider] - Additional Instructions: Will need labs drawn next week. Follow up with [facility] PCP in one week and Nephro (Dr. Marcus) in 4 weeks to reevaluate kidney function. Report to the ER or call your PCP regarding any new or worsening symptoms. - Diet and Activity Activity: resume usual activities as tolerated Diet: advance to your usual diet Interval History: 66 y o male with PMH of DM< HTN, CAD s/p CABD, CVA and ?CKD admitted as a transfer from the [place] where he presented for worsening fatigue and dizziness for the past week. Per , patient had been taking care of her when she was sick with URI some 2-3 weeks and he subsequently developed similar symptoms a wek after but got progressively weaker in the week. SCr noted at 6.5 at the [place] improving to 5.8 at the time of admission here at [place], GFR 13 . Previous records at [place] 1 yr ago is noted SCr at 1.8. Patient denied any prior nephrology contact or any renal dysfunction in the recent past but does remember back in 2008 that he had ANASTACIA. No urinary sxs. No NSAIDs use. No N/V but one day of diarrhea. he was admitted for durther manageamnet REnal was consulted. HE was treated with IVF, renal US showed no hydronephrosis or renal stones or any acute pathology. SCr continues to improve at 2.14, GFR 31 and he improved clinically. etioloy possible pre renal. he is being dc today in stable condition, was scheduled Chem-7 in 1 week. Patient will follow-up with Dr. Marcus in 4 weeks Hospital course: Mr. Bowman is a 66 year old male Time spent discussing smoking cessation with patient: more than 10 minutes - Time Spent with Patient Total time spent providing and/or coordinating discharge services: Greater than 30 minutes - Constitutional Vitals: Temp Pulse Resp BP Pulse Ox 98.3 F 70 18 135/66 97 09/01/16 07:26 09/01/16 07:26 09/01/16 07:26 09/01/16 07:26 09/01/16 07:44 General appearance: Present: A&O X 3, no acute distress Exam: - Eye Eye exam: Present: PERRL, conjuntiva pink, sclera anicteric Pupils: Present: PERRL - Neck Neck exam general surgery: Present: supple, trachea midline. Absent: lymphadenopathy - Respiratory Respiratory exam: Present: b/l clear, no wheezing - Cardiovascular Cardiovascular exam: Present: RRR, +S1, +S2. Absent: diastolic murmur, gallop, rubs, systolic murmur - GI/Abdominal GI/Abdominal exam: Present: normal bowel sounds, soft, no peritoneal signs. Absent: distended, tenderness ext- no edema
[2016-09-01 11:38] LABS: Complement Component 3 167 mg/dL (88-201); Complement Component 4 36 mg/dL (10-40)
[2016-09-01 14:26] LABS: ANA IgG by ELISA NONE DETECTED (None Detected)
[2016-09-01 20:49] LABS: Alpha 2 Globulin (PEP) 1.24 g/dL (0.48-1.05); Beta Globulin (PEP) 0.66 g/dL (0.48-1.10)
[2016-09-03 07:25] LABS: IFE Reflexed IFE Done
[2016-09-03 07:26] LABS: Immunoglobulin A 129 mg/dL (68-408); Immunoglobulin G 926 mg/dL (768-1632); Immunoglobulin M 63 mg/dL (35-263)
== END 2016-09-01 15:27 | disposition home or self-care (01) | DRG 684 ==
LOC: 2ANU 15:24 → EMEROO 15:24 → 2ANU 19:01
PROVIDERS: ADMIT Internal Medicine Endocrinology, Diabetes & Metabolism; ATTEND Internal Medicine Endocrinology, Diabetes & Metabolism

== ENCOUNTER 2016-09-14 14:26 | Inpatient (IN) ==
--- NOTE | 2016-09-14 14:47 | Emergency Department Note ---
Disposition Clinical Impression: Pneumonia Qualifiers: Pneumonia type: due to unspecified organism Laterality: bilateral Lung location : unspecified part of lung Qualified Code(s): J18.9 - Pneumonia, unspecified organism Disposition: Admitted As Inpatient Condition: Good Time of Disposition: 17:01 SOB HPI - General Chief Complaint: ED Shortness of Breath/Dyspnea Stated Complaint: SOB Time Seen by Provider: 09/14/16 14:29 Source: patient, EMS Mode of arrival: EMS Limitations: no limitations Nursing Notes Reviewed: Yes Vital Signs Reviewed: Yes - History of Present Illness 66-year-old male who was admitted last week with a UTI comes in to the family doctor today was found to be increasingly short of breath requiring oxygen to maintain sats. Had a CT scan of the chest done over the [place] and there is extensive non-specific parenchymal disease that appears to have increased over the s since patient's chest x-ray on September 04, 2016 this would suggest a acute process including atypical pneumonias and pulmonary consultation is recommended. There is also an 8 mm nodule left upper lobe this could be a primary lung cancer. Patient was treated as an outpatient with [facility]. Pt Subjective Complaint: shortness of breath, cough Onset (ago): day(s) Context: recent illness Severity: moderate Consistency/Duration: constant Improves with: oxygen Worsens with: exertion Associated symptoms: Reports: fever, cough. Denies: chest pain Treatment prior to arrival: oxygen Cough present: Yes Cough Description: Involuntary Cough Frequency: Intermittent - Related Data Home Medications Medication Instructions Recorded Confirmed Aspirin 81 mg PO DAILY 08/28/16 08/28/16 Gabapentin [Neurontin] 900 mg PO TID 08/28/16 08/28/16 Lisinopril [Zestril] 20 mg PO DAILY 08/28/16 08/28/16 Metoprolol XL (24 HR) Succ [Toprol 50 mg PO DAILY 08/28/16 08/28/16 Xl] Mupirocin [Bactroban Oint] 1 appl TP TID 08/28/16 08/28/16 Naproxen [Naprosyn] 500 mg PO BID 08/28/16 08/28/16 [place]-3/Dha/Epa/Fish Oil [Fish Oil 1,000 mg PO DAILY 08/28/16 08/28/16 1,000 mg Softgel] Omeprazole [PriLOSEC] 20 mg PO DAILY 08/28/16 08/28/16 Rosuvastatin [Crestor] 40 mg PO HS 08/28/16 08/28/16 Sertraline [Zoloft] 200 mg PO DAILY 08/28/16 08/28/16 Temazepam [Restoril] 15 mg PO HS 08/28/16 08/28/16 Allergies Allergy/AdvReac Type Severity Reaction Status Date / Time Iodinated Contrast Media - AdvReac Anaphylaxis Verified 09/27/15 23:59 Oral and simvastatin AdvReac Cramping Verified 09/27/15 23:59 of the Muscles All systems ED: reviewed and negative except as stated. Constitutional: Denies: fever, chills, weakness, weight change Eyes: Denies: eye pain, eye discharge, vision change ENT ED: Denies: ear pain, throat pain, dental pain, hearing loss, epistaxis, congestion, dysphagia Cardiovascular: Denies: chest pain, palpitations, dyspnea on exertion, edema, syncope Respiratory: Reports: cough, dyspnea. Denies: wheezes, hemoptysis, stridor Gastrointestinal: Denies: abdominal pain, nausea, vomiting, diarrhea, constipation, hematemesis, melena, hematochezia Genitourinary: Denies: urgency, dysuria, frequency, hematuria Musculoskeletal: Denies: back pain, neck pain, arthralgia, myalgia Integumentary: Denies: rash, abrasion, lesions Neurological: Denies: headache, weakness, numbness, paresthesias, confusion, abnormal gait, vertigo Psychiatric: Denies: anxiety, depression, suicidal thoughts, homicidal thoughts , auditory hallucinations, visual hallucinations Endocrine: Denies: fatigue Hematological/Lymphatic: Denies: easy bleeding, easy bruising Allergic/Immunologic: Denies: facial swelling, urticaria Past Medical History - Past Medical History Medical history: Reports: coronary artery disease, diabetes, hyperlipidemia, hypertension, other Surgical history: Reports: coronary bypass (CABG) Psychiatric history: Reports: PTSD - Social History Smoking Status: Former smoker Smokeless Tobacco Status: No Alcohol use: Reports: none Drug use: Reports: none Physical Exam - General Limitations: no limitations General appearance: alert - Head Head exam: atraumatic, normocephalic, normal inspection - Eye Eye exam: Present: normal appearance, PERRL, EOMI - ENT ENT exam: normal exam, normal oropharynx, mucous membranes moist - Neck Neck exam: Present: normal inspection, full ROM, trachea midline - Chest Chest inspection: Present: normal inspection, symmetric chest wall rise - Respiratory Respiratory exam: Present: normal lung sounds bilaterally - Cardiovascular Cardiovascular exam: Present: regular rate, normal rhythm, normal heart sounds - Abdominal Exam Abdominal exam: Present: soft, Non-Tender. Absent: tenderness, distention, guarding, rebound, rigidity - Extremities Exam Extremities exam: Present: normal inspection, full ROM. Absent: tenderness, pedal edema - Expanded Lower Extremity Exam Gait: observed and normal - Back Exam Back exam: Present: normal inspection, full ROM. Absent: tenderness - Neurological Exam Neurological exam: Present: alert, oriented X3 - Psychiatric Psychiatric exam: Present: normal affect, normal mood - Skin Skin exam: Present: warm, dry, intact, normal color Course - Reevaluation(s) Reevaluation #1: Patient had a previous reaction to either donated dye during a myelogram. It's that time he has had a cardiac catheter he's had a carotid angiogram with pretreatment with Solu-Medrol and Benadryl without difficulty. Has significant dyspnea and has an elevated d-dimer is 7600 and is at risk for PE. Discussed the allergic reaction issues and renal issues with the patient and his and he has elected to go forward with the CTA with pretreatment. Time: 16:07 Reevaluation #2: I discussed the case with the carpet jack symptoms really are not that of PE although his d-dimer is elevated at the [place] we did one here to evaluate to tell high was on our scale and he was 7600. Pulmonology indicated that this could be related to the infiltrates he has. Patient is not tachycardic and is not hypoxic at this point in time does not appear to have symptoms of a PE. His reaction to dye was anaphylaxis radiology is reluctant to inject. His VQ scan would have mismatches based on the infiltrates At this point in time he does not appear to have symptoms of PE clinically. At this time we are not going to anticoagulate as is some risk of bleeding. Time: 16:59 - Consultations Consultation #1: Discussed with Dr. Coleman carpet jack admit to hospitalist. Request order urine antigens. D-dimer from the [place] was elevated difficult to interpret based on their labs I don't know if this is appropriate d-dimer. Time: 14:46 Consultation #2: Discussed with , admit. Time: 16:58 Vital Signs Temperature 97.7 F 09/14/16 14:27 Pulse Rate 66 09/14/16 14:27 Respiratory Rate 20 09/14/16 14:27 Blood Pressure 138/82 09/14/16 14:27 O2 Sat by Pulse Oximetry 94 09/14/16 14:27 Temperature 97.7 F 09/14/16 14:27 Pulse Rate 66 09/14/16 14:27 Respiratory Rate 20 09/14/16 14:27 Blood Pressure 138/82 09/14/16 14:27 O2 Sat by Pulse Oximetry 96 09/14/16 14:31 Oxygen Delivery Oxygen Delivery Nasal Cannula Shortness of Breath/Dyspnea - Lab Data Result diagrams: 09/14/16 14:52 Lab Results 09/14/16 09/14/16 Range/Units 14:52 14:52 D-Dimer 7630 H (0-500) ng/mLFEU Sodium 139 (136-145) mEq/L Potassium 5.0 H (3.5-4.5) mEq/L Chloride 102 (98-109) mEq/L Carbon Dioxide 31 H (19-29) mEq/L BUN 24 (8-26) mg/dL Creatinine 1.37 H (0.72-1.25) mg/dL Est GFR ( Amer) > 60 (> 60) Est GFR (Non-Af Amer) 52 L (> 60) BUN/Creatinine Ratio 18 (6-26) Glucose 109 H (70-99) mg/dL Calculated Osmolality 293 (280-300) Calcium 9.1 (8.6-10.8) mg/dL - EKG Data EKG attestation: Yes I reviewed and interpreted this EKG. EKG shows normal: Reports: sinus rhythm Rate: Reports: normal Rhythm: Reports: NSR Interpretation: Reports: no acute changes
[2016-09-14] MEDS ORDERED: methylPREDNISolone 125 MG/2 ML VIAL IVP ONE (16:04)
[2016-09-14 16:42] LABS: BUN/Creatinine Ratio 18 (6-26); Blood Urea Nitrogen 24 mg/dL (8-26); Calcium 9.1 mg/dL (8.6-10.8); Carbon Dioxide 31 mEq/L (19-29); Chloride 102 mEq/L (98-109); Glucose 109 mg/dL (70-99); Osmolality,Calculated 293 (280-300); Sodium 139 mEq/L (136-145); eGFR For African Americans > 60 (> 60); eGFR For Non-African Americans 52 (> 60)
[2016-09-14] MEDS ORDERED: Levofloxacin 750 MG/150 ML 750 MG/150 ML BAG IVPB STA (16:55)
--- NOTE | 2016-09-14 18:26 | Internal Med History&Physical ---
Date of Encounter: 09/14/16 Time of Encounter: 18:17 Assessment and Plan (1) Dyspnea Current visit: Yes Status: Acute unclear etiology. CT chest done at [place] shows extensive non-specific parenchymal disease, which has worsened from prior. he also has a 8mm nodule/ he was a past smoker he does not have fever or leucocytosis. he has some degree of perisstent hypoxia since last admission requiring oxygen. We will treated empirically as atypical infection, we will continue the levofloxacin for now. Differentials can possibly be atypical pneumonia, r/o vasculitis given h/o recent ARF, ?malignant nodule may need further evaluation, pulmonary has been consulted. currently stable and sating 94% on 2 l . ECHO done on august shows normal LVEF with no pulmonary HTN. D-dimer was done that is 7630, however cannot get CT chest with contrast given history of reaction to dye with anaphylaxis and the V/Q may not be helpful given b/l extensive infiltrate, clinically less likely PE at this time with no chest pain or tachycardia. We will order bilateral lower ext Dopplers Qualifiers: Dyspnea type: unspecified Qualified Code(s): R06.00 - Dyspnea, unspecified (2) H/O acute renal failure Current visit: Yes Status: Acute creatinine has improved, today is 1.37 good urine output. continue to monitor (3) CAD (coronary artery disease) Current visit: No Status: Acute Qualifiers: Coronary Disease-Associated Artery/Lesion type: unspecified vessel or lesion type [place] vs. transplanted heart: unspecified whether [place] or transplanted heart Associated angina: without angina Qualified Code(s): I25.10 - Atherosclerotic heart disease of [place] coronary artery without angina pectoris (4) Diabetes Current visit: No Status: Chronic Qualifiers: Diabetes mellitus type: type 2 Diabetes mellitus complication status: with unspecified complications Diabetes mellitus director long term care insulin use: unspecified director long term care insulin use status Qualified Code(s): E11.8 - Type 2 diabetes mellitus with unspecified complications Internal Medicine - H&P: HPI Chief complaint: generalized weakness Admitted From: Hospital to Hospital Transfer Plans for Post Hospital Care: Home History of present illness: Mr. Bowman is a 66 year old male PMH of DM< HTN, CAD s/p CABG, CVA and Acute renal failure (resolving) admitted as a transfer from the [place] who had a CT scan of the chest that showed extensive non-specific parenchymal disease that appears to have increased since patient's chest x-ray on September 04, 2016 this would suggest a acute process including atypical pneumonias and pulmonary consultation is recommended. There is also an 8 mm nodule left upper lobe . Patient was recently admitted on August for acute renal failure when he presented with creatinine of ~6 after a flulike illness which resolved with conservative management including IV fluids. After the discharge, he followed up at the [place] for repeat Chem-7, his kidney function seems to have improved. However he says that he is exhausted all the time, has shortness of breath requiring oxygen to maintain his sats(he was dc on 2 l [place] ). Given the shortness of breath, they ordered the CXR and the CT chest that showed above findings and was thus referred here for pulmonary evaluation. He denies any fever or chest pain, reports cough and brings out greenish sputum. No history of being sedentary at home, he has no calf tenderness or swelling, no history of prior COPD or asthma or CHF. family history positive for throat cancer in grandmother and prostate cancer in brother. Past Med Surg Social Fam HX - Past Medical History Medical history: coronary artery disease, diabetes, hyperlipidemia, hypertension , other Psychiatric history: PTSD - Past Surgical History Surgical History: coronary bypass (CABG) - Social History Smoking Status: Former smoker Smokeless Tobacco Status: No Alcohol use: none Drug use: none Internal Medicine - H&P: Meds Aspirin 81 mg PO DAILY 08/28/16 [History] Gabapentin [Neurontin] 900 mg PO TID 08/28/16 [History] Lisinopril [Zestril] 20 mg PO DAILY 08/28/16 [History] Metoprolol XL (24 HR) Succ [Toprol Xl] 50 mg PO DAILY 08/28/16 [History] Mupirocin [Bactroban Oint] 1 appl TP TID 08/28/16 [History] Naproxen [Naprosyn] 500 mg PO BID 08/28/16 [History] [place]-3/Dha/Epa/Fish Oil [Fish Oil 1,000 mg Softgel] 1,000 mg PO DAILY 08/28/16 [History] Omeprazole [PriLOSEC] 20 mg PO DAILY 08/28/16 [History] Rosuvastatin [Crestor] 40 mg PO HS 08/28/16 [History] Sertraline [Zoloft] 200 mg PO DAILY 08/28/16 [History] Temazepam [Restoril] 15 mg PO HS 08/28/16 [History] Allergies Iodinated Contrast Media - Oral and Adverse Reaction (Verified 09/27/15 23:59) Anaphylaxis simvastatin Adverse Reaction (Verified 09/27/15 23:59) Cramping of the Muscles All Systems PM: A 10-system review of systems was performed and is negative for pertinent findings except as documented above in the HPI. - Constitutional Vitals: Temp Pulse Resp BP Pulse Ox 97.7 F 66 16 121/83 96 09/14/16 14:27 09/14/16 14:27 09/14/16 17:41 09/14/16 17:41 09/14/16 14:31 General appearance: Present: A&O X 3, no acute distress Exam: - Eye Eye exam: Present: PERRL, conjuntiva pink, sclera anicteric Pupils: Present: PERRL - Neck Neck exam general surgery: Present: supple, trachea midline. Absent: lymphadenopathy - Respiratory Respiratory exam: Present: b/l mild basal creptns, no wheezing - Cardiovascular Cardiovascular exam: Present: RRR, +S1, +S2. Absent: diastolic murmur, gallop, rubs, systolic murmur - GI/Abdominal GI/Abdominal exam: Present: normal bowel sounds, soft, no peritoneal signs. Absent: distended, tenderness ext- no edema Internal Med - H&P Results - Labs CBC & Chem 7: 09/14/16 14:52
[2016-09-14] MEDS ORDERED: Naloxone 0.4 MG/ML INJ IVP PRN (18:38)
--- NOTE | 2016-09-14 20:58 | Electrocardiograph Report ---
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
[2016-09-14] MEDS ORDERED: Dextrose Gel 15 GM PO PRN ×2 (20:59)
[2016-09-14] MEDS ORDERED: *HR* Dextrose 50 % in Water (Syg) 50 ML SYRINGE IVP PRN (20:59)
[2016-09-14] MEDS ORDERED: D5% in Water 1,000 ML IVC PRN (20:59)
[2016-09-14] MEDS: Gabapentin 300 MG CAPSULE PO SCH (21:56)
[2016-09-14] MEDS: Insulin LISPRO 300 UNITS/3 ML VIAL SQ SCH (21:58)
[2016-09-15 06:43] LABS: Basophils % 0.2 %; Eosinophils % 0.1 %; Hematocrit 37.7 % (37.5-50.1); Hemoglobin 11.5 g/dL (12.9-16.9); Lymphocytes # 1.1 K/mcL (0.6-4.6); Lymphocytes % 7.7 %; Mean Corpuscular HGB Conc 30.5 g/dL (31.6-35.5); Mean Corpuscular Hemoglobin 27.3 pg (28.0-33.3); Mean Corpuscular Volume 89.3 fL (83.0-100.0); Mean Platelet Volume 8.7 fL (9.4-12.4); Monocytes # 0.6 K/mcL (0.0-1.3); Monocytes % 4.1 %; Platelet Count 385 K/mcL (140-400); Red Blood Count 4.22 M/mcL (4.19-5.50); Red Cell Distribution Width 13.7 % (11.5-14.5); Segmented Neutrophils % 86.9 %
[2016-09-15 06:48] LABS: BUN/Creatinine Ratio 23 (6-26); Blood Urea Nitrogen 28 mg/dL (8-26); Calcium 9.7 mg/dL (8.6-10.8); Carbon Dioxide 29 mEq/L (19-29); Chloride 103 mEq/L (98-109); Glucose 131 mg/dL (70-99); Osmolality,Calculated 297 (280-300); Potassium 5.4 mEq/L (3.5-4.5); Sodium 140 mEq/L (136-145); eGFR For African Americans > 60 (> 60); eGFR For Non-African Americans > 60 (> 60)
[2016-09-15] MEDS: Insulin LISPRO 300 UNITS/3 ML VIAL SQ SCH ×4 (07:58→20:07)
[2016-09-15] MEDS: Metoprolol XL (24 HR) Succ 50 MG TAB.ER.24H PO SCH (07:59)
[2016-09-15] MEDS: Gabapentin 300 MG CAPSULE PO SCH ×3 (07:59→20:09)
[2016-09-15] MEDS: Lisinopril 20 MG TABLET PO SCH (07:59)
[2016-09-15] MEDS: Aspirin 81 MG TAB.CHEW PO SCH (07:59)
[2016-09-15 10:59] LABS: Prolactin 4.52 ng/mL (3.46-19.40)
--- NOTE | 2016-09-15 11:04 | Internal Med Progress Note ---
Date of Encounter: 09/15/16 Time of Encounter: 08:05 - Assessment and plan (1) Pneumonia Current Visit: Yes Status: Suspected Assessment and plan: Possible atypical pneumonia. Started on Levaquin. Pulmonology consulted. We will follow recommendations. We will also check for inflammatory markers. Moderate risk for complications. Qualifiers: Pneumonia type: due to unspecified organism Laterality: bilateral Lung location: unspecified part of lung Qualified Code(s): J18.9 - Pneumonia, unspecified organism (2) CAD (coronary artery disease) Current Visit: Yes Status: Chronic Assessment and plan: Continue aspirin, beta mariela and statin. Patient may be having pleuritic chest pain this time. Qualifiers: Coronary Disease-Associated Artery/Lesion type: unspecified vessel or lesion type [place] vs. transplanted heart: unspecified whether [place] or transplanted heart Associated angina: without angina Qualified Code(s): I25.10 - Atherosclerotic heart disease of [place] coronary artery without angina pectoris (3) Diabetes Current Visit: Yes Status: Chronic Assessment and plan: Well-controlled. Continue insulin regimen Qualifiers: Diabetes mellitus type: type 2 Diabetes mellitus complication status: with unspecified complications Diabetes mellitus [place] insulin use: unspecified [place] insulin use status Qualified Code(s): E11.8 - Type 2 diabetes mellitus with unspecified complications (4) Dyspnea Current Visit: Yes Status: Acute Assessment and plan: Improving clinically. Continue supportive care. Treating underlying atypical pneumonia per CT scan findings. O2 supplementation as needed. Qualifiers: Dyspnea type: unspecified Qualified Code(s): R06.00 - Dyspnea, unspecified (5) H/O acute renal failure Current Visit: Yes Status: Acute Assessment and plan: Renal function is now normal. Potassium is slightly elevated. - Subjective Interval history: Patient is awake and alert. Doing better today. Shortness of breath is improving. No nausea or vomiting. He does have some chest discomfort especially with deep breathing. No hemoptysis, fever or chills. - Constitutional Vitals: Temp Pulse Resp BP Pulse Ox 98.1 F 55 18 121/73 97 09/15/16 07:11 09/15/16 07:11 09/15/16 07:11 09/15/16 07:11 09/15/16 07:11 General appearance: Present: mild distress, A&O X 3, no acute distress, answers questions appropriately - Respiratory Respiratory exam: Absent: accessory muscle use, rales, rhonchi, wheezes Additional comments: Dry crackles bilaterally - Extremities Exam Extremities exam: Present: warm, radial pulses palpable and symetrical. Absent : calf tenderness, cyanotic, pedal edema - Neurological Exam Neurological exam: Present: alert, oriented X3, no focal deficits. Absent: pronater drift, facial droop, speech deficit - Skin Skin exam: Present: dry, intact Internal Medicine: Result - Labs CBC & Chem 7: 09/15/16 05:17 09/15/16 05:17 Labs: Short CBC 09/15/16 Range/Units 05:17 WBC 13.8 H (4.3-11.1) K/mcL Hgb 11.5 L (12.9-16.9) g/dL Hct 37.7 (37.5-50.1) % Plt Count 385 (140-400) K/mcL Neutrophils # 12.0 H (1.6-8.9) K/mcL BMP 09/15/16 05:17 Sodium 140 Potassium 5.4 H Chloride 103 Carbon Dioxide 29 BUN 28 H Creatinine 1.20 Glucose 131 H Calcium 9.7 - ABG Interpretation ABG results: PT/INR, D-dimer D-Dimer 7630 ng/mLFEU (0-500) H 09/14/16 14:52 Consult Discharge Plan - Plan Referrals: [facility] [Primary Care Provider] - - Attending Attestation This document has been at least partially created by [employer] recognition technology by Dr. Navarro. Errors in grammar, wording or other phrases may exist. If errors are found after the documentation is signed, they will be addressed individually in the addendum section of this document when appropriate.
[2016-09-15] MEDS ORDERED: Ipratropium/Albuterol Neb 3 ML ONE (17:37)
[2016-09-15] MEDS: Ipratropium/Albuterol Neb 3 ML IH PRN ×2 (17:40→23:10)
[2016-09-15] MEDS: Levofloxacin 500 MG/100 ML 500 MG/100 ML BAG IVPB SCH (18:05)
[2016-09-16 05:25] LABS: Basophils # 0.1 K/mcL (0.0-0.2); Basophils % 0.5 %; Eosinophils # 0.2 K/mcL (0.0-0.6); Eosinophils % 1.3 %; Hematocrit 31.8 % (37.5-50.1); Immature Granulocytes % 0.9 % (0-4); Lymphocytes # 1.7 K/mcL (0.6-4.6); Lymphocytes % 13.3 %; Mean Corpuscular HGB Conc 31.4 g/dL (31.6-35.5); Mean Corpuscular Hemoglobin 27.8 pg (28.0-33.3); Mean Corpuscular Volume 88.3 fL (83.0-100.0); Mean Platelet Volume 8.9 fL (9.4-12.4); Monocytes # 0.9 K/mcL (0.0-1.3); Monocytes % 7.1 %; Neutrophils # 9.8 K/mcL (1.6-8.9); Platelet Count 301 K/mcL (140-400); Red Cell Distribution Width 13.6 % (11.5-14.5); Segmented Neutrophils % 76.9 %
[2016-09-16] MEDS ORDERED: Acetaminophen 325 MG TABLET PO ONE (05:33)
[2016-09-16 05:35] LABS: BUN/Creatinine Ratio 25 (6-26); Blood Urea Nitrogen 31 mg/dL (8-26); Calcium 9.1 mg/dL (8.6-10.8); Carbon Dioxide 31 mEq/L (19-29); Chloride 99 mEq/L (98-109); Glucose 114 mg/dL (70-99); Osmolality,Calculated 289 (280-300); Potassium 4.6 mEq/L (3.5-4.5); Sodium 136 mEq/L (136-145); eGFR For African Americans > 60 (> 60); eGFR For Non-African Americans 57 (> 60)
[2016-09-16] MEDS: Lisinopril 20 MG TABLET PO SCH (07:59)
[2016-09-16] MEDS: Metoprolol XL (24 HR) Succ 50 MG TAB.ER.24H PO SCH (07:59)
[2016-09-16] MEDS: Aspirin 81 MG TAB.CHEW PO SCH (07:59)
[2016-09-16] MEDS: Gabapentin 300 MG CAPSULE PO SCH ×3 (08:00→20:49)
[2016-09-16] MEDS: Insulin LISPRO 300 UNITS/3 ML VIAL SQ SCH ×4 (08:00→20:50)
--- NOTE | 2016-09-16 11:23 | Internal Med Progress Note ---
Date of Encounter: 09/16/16 Time of Encounter: 10:00 - Assessment and plan (1) Pneumonia Current Visit: Yes Status: Suspected Assessment and plan: Currently being treated for atypical pneumonia. Blood cultures have been negative. WBC count is improving. Pulmonology has been consulted. Will follow recommendations. Continue supportive care. Moderate risk for complications. O2 supplementation as needed. Qualifiers: Pneumonia type: due to unspecified organism Laterality: bilateral Lung location: unspecified part of lung Qualified Code(s): J18.9 - Pneumonia, unspecified organism (2) CAD (coronary artery disease) Current Visit: Yes Status: Chronic Assessment and plan: Continue aspirin, statin, beta mariela and LYNN inhibitor. Qualifiers: Coronary Disease-Associated Artery/Lesion type: unspecified vessel or lesion type [place] vs. transplanted heart: unspecified whether [place] or transplanted heart Associated angina: without angina Qualified Code(s): I25.10 - Atherosclerotic heart disease of [place] coronary artery without angina pectoris (3) Diabetes Current Visit: Yes Status: Chronic Assessment and plan: Blood sugars are well controlled. No changes to current insulin regimen. Qualifiers: Diabetes mellitus type: type 2 Diabetes mellitus complication status: with unspecified complications Diabetes mellitus halfway insulin use: unspecified halfway insulin use status Qualified Code(s): E11.8 - Type 2 diabetes mellitus with unspecified complications (4) Dyspnea Current Visit: Yes Status: Acute Assessment and plan: Continue O2 supplementation and bronchodilator nebs as needed. Qualifiers: Dyspnea type: unspecified Qualified Code(s): R06.00 - Dyspnea, unspecified (5) H/O acute renal failure Current Visit: Yes Status: Acute Assessment and plan: Creatinine remains essentially stable. Will follow renal function. - Subjective Interval history: Patient is doing better this morning. Yesterday evening he developed shortness of breath and wheezing. He was treated for that with bronchodilator nebs with some improvement in his symptoms. He is also been using incentive spirometry since then. He complains of sweats. He had a MAXIMUM TEMPERATURE of 99.2. No worsening of pleuritic chest pain. - Constitutional Vitals: Temp Pulse Resp BP Pulse Ox 98.6 F 60 18 101/61 94 09/16/16 06:57 09/16/16 06:57 09/16/16 06:57 09/16/16 06:57 09/16/16 06:57 General appearance: Present: mild distress, A&O X 3, no acute distress, answers questions appropriately - Respiratory Respiratory exam: Present: prolonged expiratory phase, rhonchi. Absent: accessory muscle use, rales, wheezes - Cardiovascular Cardiovascular exam: Present: RRR, +S1, +S2. Absent: diastolic murmur, gallop, rubs, systolic murmur - GI/Abdominal GI/Abdominal exam: Present: normal bowel sounds, soft, no peritoneal signs. Absent: distended, tenderness - Neurological Exam Neurological exam: Present: alert, oriented X3, no focal deficits. Absent: facial droop, speech deficit Internal Medicine: Result - Labs CBC & Chem 7: 09/16/16 05:05 09/16/16 05:05 Labs: Short CBC 09/16/16 Range/Units 05:05 WBC 12.8 H (4.3-11.1) K/mcL Hgb 10.0 L D (12.9-16.9) g/dL Hct 31.8 L (37.5-50.1) % Plt Count 301 (140-400) K/mcL Neutrophils # 9.8 H (1.6-8.9) K/mcL BMP 09/16/16 05:05 Sodium 136 Potassium 4.6 H Chloride 99 Carbon Dioxide 31 H BUN 31 H Creatinine 1.26 H Glucose 114 H Calcium 9.1 - ABG Interpretation ABG results: PT/INR, D-dimer D-Dimer 7630 ng/mLFEU (0-500) H 09/14/16 14:52 Consult Discharge Plan - Plan Referrals: [facility] [Primary Care Provider] - - Attending Attestation This document has been at least partially created by [employer] recognition technology by Dr. Navarro. Errors in grammar, wording or other phrases may exist. If errors are found after the documentation is signed, they will be addressed individually in the addendum section of this document when appropriate.
--- NOTE | 2016-09-16 15:02 | Pulmonology Consult Note ---
Date of Encounter: 09/16/16 Time of Encounter: 14:30 Assessment and Plan (1) Interstitial lung disorders Current Visit: Yes Status: Acute Areas of groundglass opacity with small areas of possible organizing consolidation. Evidence of septal thickening. Diffuse heterogeneous findings with some peripheral and subpleural predominance. Broad differential diagnosis which includes atypical or viral infection, hypersensitivity pneumonitis, lymphangitic carcinomatosis, idiopathic interstitial pneumonia such as [place]. Would also strongly consider vasculitic process, given his recent history of acute kidney injury of unknown cause and markedly elevated inflammatory markers (ESR/CRP). Unlikely to represent pneumoconiosis or other industrial lung disease. Report from OR is interval worsening of CT findings. However, unable to confirm this as original CT imaging is not available within the system. Recommendations: Discussed bronchoscopy with BAL plus/minus transbronchial biopsy. Patient is agreeable. Plan to complete this week Infection is unlikely but not unreasonable to complete a course of antibiotics with atypical coverage. If not already done, obtain Legionella pneumonia urinary antigen. Serological workup for vasculitis/connective tissue disease At this point recommend against empiric course of systemic corticosteroids as this could alter the sensitivity of various serologic and histologic testing. (2) Dyspnea Current Visit: Yes Status: Acute Related to relatively new onset interstitial lung disease. Continue symptomatic therapy if patient reports improvement with as needed bronchodilators Qualifiers: Dyspnea type: unspecified Qualified Code(s): R06.00 - Dyspnea, unspecified (3) H/O acute renal failure Current Visit: Yes Status: Resolved Serum creatinine now approximately 1.2. Baseline uncertain. No clear cause of recent acute kidney injury. 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 Can be assessed with vasculitic workup. (4) Hypoxia Current Visit: Yes Status: Acute Probably related to relatively new onset interstitial lung disease. Continue with submental oxygen for goal SPO2 greater than 88%. History of Present Illness Reason for consult: dyspnea, abnormal CXR/CT Chief complaint: Dyspnea on exertion History of present illness: Consulted by internal medicine service for evaluation of a 66-year-old male admitted on September 14 following reported progression of interstitial lung disease findings on CT chest. Patient states that he felt well up until several weeks ago when he experienced several days of flulike symptoms. Symptoms included upper airway congestion, sinus drainage, chest congestion, cough productive of small quantities of sputum, and dyspnea on exertion. Patient states that these symptoms persisted for approximately 4-5 days before largely resolving. However, following this illness patient continued to experience dyspnea on exertion. Has undergone repeat evaluation since this time which revealed abnormal chest imaging by patient report. Patient is seen by OR provider. Was admitted within the past several weeks for dyspnea with hypoxemia and new onset renal dysfunction. By report, CT chest was obtained during one of his previous evaluations that revealed some degree of interstitial lung findings. Was seen for reevaluation in the day and follow-up CT was ordered. The CT revealed reported progression of interstitial findings and patient was directed to seek evaluation in the ED. Patient states that prior to these events he was very active and able to perform extensive exercise. He now finds that he is unable to walk short distances without feeling dyspneic. Has been given supplemental oxygen for hypoxemia. Patient denies any history of lung disease. No known exposure history however, served in [employer] in 1967 and and was exposed to [place]. 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 He notes however, there was a water cooled saw and inhaled dust exposure is minimal. Since resolution of his initial flu symptoms , patient denies F/C, night sweats. Admits to approximately 40 pound weight loss over past year and notes that this was intentional and a result of diet and exercise. Denies any unintentional or unexplained weight loss. Past Med Surg Social Fam HX - Past Medical History Medical history: coronary artery disease, diabetes, hyperlipidemia, hypertension , other Psychiatric history: PTSD - Past Surgical History Surgical History: coronary bypass (CABG) - Social History Smoking Status: Former smoker Smokeless Tobacco Status: No Alcohol use: none Drug use: none Medications and Allergies Aspirin 325 mg PO DAILY 08/28/16 [History] Gabapentin [Neurontin] 900 mg PO TID 08/28/16 [History] Lisinopril [Zestril] 20 mg PO DAILY 08/28/16 [History] Metoprolol XL (24 HR) Succ [Toprol Xl] 100 mg PO DAILY 08/28/16 [History] Naproxen [Naprosyn] 500 mg PO BID 08/28/16 [History] [place]-3/Dha/Epa/Fish Oil [Fish Oil 1,000 mg Softgel] 1,000 mg PO DAILY 08/28/16 [History] Omeprazole [PriLOSEC] 20 mg PO DAILY 08/28/16 [History] Rosuvastatin [Crestor] 40 mg PO HS 08/28/16 [History] Sertraline [Zoloft] 100 mg PO BID 08/28/16 [History] Temazepam [Restoril] 15 mg PO HS 08/28/16 [History] Cyclobenzaprine [Flexeril] 10 mg PO TID PRN 09/14/16 [History] Allergies Iodinated Contrast Media - Oral and Adverse Reaction (Verified 09/27/15 23:59) Anaphylaxis simvastatin Adverse Reaction (Verified 09/27/15 23:59) Cramping of the Muscles All Systems: A 10-system review of systems was performed and is negative for pertinent findings except as documented above in the HPI. - Constitutional Constitutional: fatigue, weight loss, no anorexia, no chills, no fever(s), no night sweats - EENT Eyes: no loss of peripheral vision, no loss of vision Ears: no decreased hearing Nose, mouth and throat: no change in voice, no dizziness, no dysphagia, no epistaxis, no neck pain, no sinus pain, no sore throat - Cardiovascular Cardiovascular: dyspnea on exertion, no chest pain, no chest pain at rest, no chest pain with activity, no diaphoresis, no edema, no pedal edema - Respiratory Respiratory: cough, dyspnea on exertion, no hemoptysis, no stridor, no chest congestion, no excessive phlegm production - Gastrointestinal Gastrointestinal: no abdominal pain, no diarrhea, no heartburn, no hematemesis, no hematochezia, no nausea, no odynophagia, no vomiting - Genitourinary Genitourinary: no dysuria, no hematuria - Musculoskeletal Musculoskeletal: no joint pain, no weakness, no arthralgias, no joint swelling, no myalgias - Integumentary Integumentary: no erythema, no rash - Neurological Neurological: no confusion, no dizziness, no lack of coordination, no loss of vision - Endocrine Endocrine: fatigue, no flushing - Hematologic/Lymphatic Hematologic/Lymphatic: no lymphadenopathy Physical Examination Vital Signs: Vital Signs, Last 4 Hours Temp Pulse Resp BP Pulse Ox 09/16/16 11:48 98.5 F 66 17 110/68 94 General appearance: no acute distress Eyes: nonicteric Neck: supple, no lymphadenopathy Effort: normal Auscultation: bilateral: clear Cardiovascular: regular rate and rhythm Gastrointestinal: soft, non-tender Integumentary: normal Extremities: no cyanosis, no edema, no clubbing Musculoskeletal: no deformities mood appropriate, affect normal Results - Laboratory Findings CBC and BMP: 09/16/16 05:05 09/16/16 05:05 PT/INR, D-dimer D-Dimer 7630 ng/mLFEU (0-500) H 09/14/16 14:52 Abnormal lab findings: Abnormal lab results WBC 12.8 K/mcL (4.3-11.1) H 09/16/16 05:05 RBC 3.60 M/mcL (4.19-5.50) L 09/16/16 05:05 Hgb 10.0 g/dL (12.9-16.9) L D 09/16/16 05:05 Hct 31.8 % (37.5-50.1) L 09/16/16 05:05 MCH 27.8 pg (28.0-33.3) L 09/16/16 05:05 MCHC 31.4 g/dL (31.6-35.5) L 09/16/16 05:05 MPV 8.9 fL (9.4-12.4) L 09/16/16 05:05 Neutrophils # 9.8 K/mcL (1.6-8.9) H 09/16/16 05:05 ESR >= 130 mm/hr (0-10) H 09/15/16 08:22 D-Dimer 7630 ng/mLFEU (0-500) H 09/14/16 14:52 Potassium 4.6 mEq/L (3.5-4.5) H 09/16/16 05:05 Carbon Dioxide 31 mEq/L (19-29) H 09/16/16 05:05 BUN 31 mg/dL (8-26) H 09/16/16 05:05 Creatinine 1.26 mg/dL (0.72-1.25) H 09/16/16 05:05 Est GFR (Non-Af Amer) 57 (> 60) L 09/16/16 05:05 Glucose 114 mg/dL (70-99) H 09/16/16 05:05 POC Glucose 110 (58-89) H 09/16/16 07:30 C-Reactive Protein 83 mg/L (Less than 5) H 09/15/16 08:22 - Microbiology Findings Microbiology Findings: Microbiology, Last 48 Hours 09/14/16 17:54 Blood Culture - Preliminary Peripheral Venipuncture No growth. 09/14/16 17:54 Blood Culture - Preliminary Peripheral Venipuncture No growth. - Clinical Findings Intake & Output: Intake & Output 09/15/16 09/16/16 09/16/16 23:59 07:59 15:59 Intake Total 250 / 250 600 / 600 Output Total 0 / 0 Balance 250 / 250 600 / 600 Weight 74.026 kg Consult Discharge Plan - Plan [facility]errals: [facility] [Primary Care Provider[facility] -
[2016-09-16] MEDS: Levofloxacin 500 MG/100 ML 500 MG/100 ML BAG IVPB SCH (18:25)
[2016-09-16] MEDS: Ipratropium/Albuterol Neb 3 ML IH PRN (22:05)
[2016-09-16] MEDS: Temazepam 15 MG CAPSULE PO PRN (23:01)
[2016-09-17 04:05] LABS: Basophils # 0.1 K/mcL (0.0-0.2); Basophils % 0.5 %; Eosinophils # 0.4 K/mcL (0.0-0.6); Eosinophils % 3.4 %; Hematocrit 30.5 % (37.5-50.1); Hemoglobin 9.7 g/dL (12.9-16.9); Immature Granulocytes % 0.9 % (0-4); Lymphocytes # 1.2 K/mcL (0.6-4.6); Lymphocytes % 11.7 %; Mean Corpuscular HGB Conc 31.8 g/dL (31.6-35.5); Mean Corpuscular Hemoglobin 27.6 pg (28.0-33.3); Mean Corpuscular Volume 86.9 fL (83.0-100.0); Mean Platelet Volume 8.8 fL (9.4-12.4); Monocytes # 0.8 K/mcL (0.0-1.3); Neutrophils # 7.7 K/mcL (1.6-8.9); Platelet Count 282 K/mcL (140-400); Red Blood Count 3.51 M/mcL (4.19-5.50); Red Cell Distribution Width 13.7 % (11.5-14.5); Segmented Neutrophils % 75.5 %
[2016-09-17 04:18] LABS: BUN/Creatinine Ratio 28 (6-26); Blood Urea Nitrogen 33 mg/dL (8-26); Calcium 8.9 mg/dL (8.6-10.8); Carbon Dioxide 30 mEq/L (19-29); Chloride 99 mEq/L (98-109); Glucose 124 mg/dL (70-99); Osmolality,Calculated 293 (280-300); Potassium 4.6 mEq/L (3.5-4.5); Sodium 137 mEq/L (136-145); eGFR For African Americans > 60 (> 60); eGFR For Non-African Americans > 60 (> 60)
[2016-09-17] MEDS: Insulin LISPRO 300 UNITS/3 ML VIAL SQ SCH ×4 (07:48→20:56)
[2016-09-17] MEDS ORDERED: 0.9 % Sodium Chloride 500 ML ONE (09:32)
--- NOTE | 2016-09-17 09:34 | Pulmonology Progress Note ---
Date of Encounter: 09/17/16 Time of Encounter: 08:15 Assessment and Plan (1) Pneumonia Current Visit: Yes Status: Suspected Patient still requiring O2 to keep his SPO2 above 90%. I talked to him about bronchoscopy and explained to him all risks, alternatives and benefits of the procedure and he agreed to have it done. Will blan BAL and biopsy. Keep NPO post mid-night. Qualifiers: Pneumonia type: due to unspecified organism Laterality: bilateral Lung location: unspecified part of lung Qualified Code(s): J18.9 - Pneumonia, unspecified organism (2) Hypoxia Current Visit: Yes Status: Acute Keep SPO2 around 90% and wean off FIO2 as tolerated. Subjective Principal diagnosis: Dyspnea Interval history: Patient still feels short of breath and he feels it is better with breathing treatment Objective PUL Vital signs: Last Vital Signs Temp 98.4 F 09/17/16 06:58 Pulse 70 09/17/16 06:58 Resp 16 09/17/16 06:58 BP 92/58 09/17/16 06:58 Pulse Ox 92 09/17/16 06:58 General appearance: no acute distress Eyes: nonicteric ENT: oropharynx moist Neck: supple, no lymphadenopathy Effort: mildly labored Auscultation: bilateral: rhonchi Percussion: bilateral: not dull Cardiovascular: regular rate and rhythm Gastrointestinal: normoactive bowel sounds, non-distended Extremities: no cyanosis, no edema normal mental status, non-focal exam mood appropriate Results - Laboratory Findings CBC and BMP: 09/17/16 03:36 09/17/16 03:36 PT/INR, D-dimer D-Dimer 7630 ng/mLFEU (0-500) H 09/14/16 14:52 Abnormal lab findings: Abnormal lab results RBC 3.51 M/mcL (4.19-5.50) L 09/17/16 03:36 Hgb 9.7 g/dL (12.9-16.9) L 09/17/16 03:36 Hct 30.5 % (37.5-50.1) L 09/17/16 03:36 MCH 27.6 pg (28.0-33.3) L 09/17/16 03:36 MPV 8.8 fL (9.4-12.4) L 09/17/16 03:36 ESR >= 130 mm/hr (0-10) H 09/15/16 08:22 D-Dimer 7630 ng/mLFEU (0-500) H 09/14/16 14:52 Potassium 4.6 mEq/L (3.5-4.5) H 09/17/16 03:36 Carbon Dioxide 30 mEq/L (19-29) H 09/17/16 03:36 BUN 33 mg/dL (8-26) H 09/17/16 03:36 BUN/Creatinine Ratio 28 (6-26) H 09/17/16 03:36 Glucose 124 mg/dL (70-99) H 09/17/16 03:36 POC Glucose 132 (58-89) H 09/16/16 20:47 C-Reactive Protein 83 mg/L (Less than 5) H 09/15/16 08:22 - Microbiology Findings Microbiology Findings: Microbiology, Last 48 Hours 09/14/16 17:54 Blood Culture - Preliminary Peripheral Venipuncture No growth. 09/14/16 17:54 Blood Culture - Preliminary Peripheral Venipuncture No growth. - Clinical Findings Intake & Output: Intake & Output 09/16/16 09/17/16 09/17/16 23:59 07:59 15:59 Intake Total 0 / 0 0 / 0 240 / 240 Output Total 0 / 0 300 / 300 Balance 0 / 0 -300 / -300 240 / 240 Weight 69.581 kg Consult Discharge Plan - Plan [facility]errals: [facility] [Primary Care Provider] - 09/25/16 2:00 pm (Please follow up as schedule..)
[2016-09-17] MEDS: Aspirin 81 MG TAB.CHEW PO SCH (09:41)
[2016-09-17] MEDS: Metoprolol XL (24 HR) Succ 50 MG TAB.ER.24H PO SCH (09:41)
[2016-09-17] MEDS: Lisinopril 20 MG TABLET PO SCH (09:41)
[2016-09-17] MEDS: Gabapentin 300 MG CAPSULE PO SCH ×3 (09:41→20:56)
[2016-09-17] MEDS: Ipratropium/Albuterol Neb 3 ML IH PRN (10:45)
--- NOTE | 2016-09-17 11:44 | Internal Med Progress Note ---
Date of Encounter: 09/17/16 Time of Encounter: 09:50 - Assessment and plan (1) Pneumonia Current Visit: Yes Status: Suspected Assessment and plan: Patient currently being treated for atypical pneumonia. On IV antibiotics. Pulmonology has evaluated patient. Recommend bronchoscopy for further evaluation. This has been scheduled for tomorrow. Keep nothing by mouth after midnight. Moderate risk for complications. Qualifiers: Pneumonia type: due to unspecified organism Laterality: bilateral Lung location: unspecified part of lung Qualified Code(s): J18.9 - Pneumonia, unspecified organism (2) CAD (coronary artery disease) Current Visit: Yes Status: Chronic Assessment and plan: Continue aspirin, statin, beta mariela and LYNN inhibitor. Qualifiers: Coronary Disease-Associated Artery/Lesion type: unspecified vessel or lesion type [place] vs. transplanted heart: unspecified whether [place] or transplanted heart Associated angina: without angina Qualified Code(s): I25.10 - Atherosclerotic heart disease of [place] coronary artery without angina pectoris (3) Diabetes Current Visit: Yes Status: Chronic Assessment and plan: Blood sugars are well controlled. No changes to insulin regimen at this time. Qualifiers: Diabetes mellitus type: type 2 Diabetes mellitus complication status: with unspecified complications Diabetes mellitus fci insulin use: unspecified terminal operations manager insulin use status Qualified Code(s): E11.8 - Type 2 diabetes mellitus with unspecified complications (4) Dyspnea Current Visit: Yes Status: Acute Assessment and plan: Continue O2 supplementation. Believed to be due to atypical pneumonia. Qualifiers: Dyspnea type: unspecified Qualified Code(s): R06.00 - Dyspnea, unspecified (5) H/O acute renal failure Current Visit: Yes Status: Resolved - Subjective Interval history: Patient continues to have some difficulty in breathing. Still requiring supplemental oxygen to keep sats greater than 90. Denies any nausea or vomiting. Has been having sweats. Pleuritic chest pain continues. - Constitutional Vitals: Temp Pulse Resp BP Pulse Ox 98.2 F 70 16 97/64 97 09/17/16 10:35 09/17/16 11:12 09/17/16 11:12 09/17/16 11:12 09/17/16 11:12 General appearance: Present: mild distress, A&O X 3, no acute distress, answers questions appropriately - Respiratory Respiratory exam: Present: rhonchi. Absent: accessory muscle use, rales, wheezes Additional comments: Dry crackles bilaterally - GI/Abdominal GI/Abdominal exam: Present: normal bowel sounds, soft, no peritoneal signs. Absent: distended, tenderness - Extremities Exam Extremities exam: Present: warm, radial pulses palpable and symetrical. Absent : calf tenderness, cyanotic, pedal edema - Neurological Exam Neurological exam: Present: alert, oriented X3, no focal deficits. Absent: facial droop, speech deficit Internal Medicine: Result - Labs CBC & Chem 7: 09/17/16 03:36 09/17/16 03:36 Labs: Short CBC 09/17/16 Range/Units 03:36 WBC 10.2 (4.3-11.1) K/mcL Hgb 9.7 L (12.9-16.9) g/dL Hct 30.5 L (37.5-50.1) % Plt Count 282 (140-400) K/mcL Neutrophils # 7.7 (1.6-8.9) K/mcL BMP 09/17/16 03:36 Sodium 137 Potassium 4.6 H Chloride 99 Carbon Dioxide 30 H BUN 33 H Creatinine 1.16 Glucose 124 H Calcium 8.9 - ABG Interpretation ABG results: PT/INR, D-dimer D-Dimer 7630 ng/mLFEU (0-500) H 09/14/16 14:52 Consult Discharge Plan - Plan [facility]errals: [facility] [Primary Care Provider] - 09/25/16 2:00 pm (Please follow up as schedule..) - Attending Attestation This document has been at least partially created by [employer] recognition technology by Dr. Navarro. Errors in grammar, wording or other phrases may exist. If errors are found after the documentation is signed, they will be addressed individually in the addendum section of this document when appropriate.
--- NOTE | 2016-09-17 14:29 | Venous Imaging Report ---
LE Venous Duplex Patient Name:Derek Bowman Order Number:[id number] Procedure Date:09/14/2016 Date:8Age:66 yrs Gender:Male Location:[facility] Room #: 2A13 Fisheries Technician:Gracia Gallegos Referring MD:Charles Saul MD bomb loader:[facility] Elmer MD:Mikie Hopson MD Primary Indications:r/o DVT Secondary Indications: Risk Factors Yes/No Anticoagulants Yes Impressions: Normal bilateral lower extremity deep and superficial venous exam. Recommendations: After imaging the patient returned to their room. Findings Venous Duplex Results: Right: Venous imaging of the lower extremity reveals full patency and normal vessel compressibility of the right distal iliac, right common femoral, right superficial femoral, right popliteal, right posterior tibial, right peroneal, right great saphenous and right lesser saphenous. Doppler signals in the evaluated veins were normal. Left: Venous imaging of the lower extremity reveals full patency and normal vessel compressibility of the left distal iliac, left common femoral, left superficial femoral, left popliteal, left posterior tibial, left peroneal, left great saphenous and left lesser saphenous. Doppler signals in the evaluated veins were normal. Prior Study: No prior study available for comparison. Lower Extremity Venous Duplex Side Vein Compress Spontaneous Flow Augment Diameter (cm) Depth (cm) Right Distal Iliac Normal Yes Phasic Yes Right Common Femoral Normal Yes Phasic Yes Right Superficial Femoral Normal Yes Phasic Yes Right Popliteal Normal Yes Phasic Yes Right Posterior Tibial Normal Yes Phasic Yes Right Peroneal Normal Yes Phasic Yes Right Great Saphenous Normal Yes Phasic Yes Right Lesser Saphenous Normal Yes Phasic Yes Left Distal Iliac Normal Yes Phasic Yes Left Common Femoral Normal Yes Phasic Yes Left Superficial Femoral Normal Yes Phasic Yes Left Popliteal Normal Yes Phasic Yes Left Posterior Tibial Normal Yes Phasic Yes Left Peroneal Normal Yes Phasic Yes Left Great Saphenous Normal Yes Phasic Yes Left Lesser Saphenous Normal Yes Phasic Yes Updated by Mikie Hopson MD on 09/17/2016 2:24:16 PM electronically signed on 09/17/2016 2:24:27 PM with status of Final
[2016-09-17] MEDS: Levofloxacin 500 MG/100 ML 500 MG/100 ML BAG IVPB SCH (18:26)
[2016-09-17] MEDS: *HR* Heparin 5,000 UNIT/ML VIAL SQ SCH (18:26)
[2016-09-17] MEDS: Temazepam 15 MG CAPSULE PO PRN (23:10)
[2016-09-18] MEDS: *HR* Heparin 5,000 UNIT/ML VIAL SQ SCH ×2 (05:31→17:59)
[2016-09-18] MEDS ORDERED: Tetracaine/Benzocaine/Butamben 200MG/SPRAY (100SPY/BOT) MM ONE (08:11)
[2016-09-18] MEDS ORDERED: Lidocaine Viscous Oral Soln 15 ML SOLUTION MM ONE (08:11)
[2016-09-18] MEDS ORDERED: *HR* EPINEPHrine 1 MG/10 ML SYRINGE INTRATRACH PRN (08:11)
--- NOTE | 2016-09-18 08:13 | Pre-Sedation Evaluation ---
Pre-sedation evaluation - Pre-sedation checklist Date of procedure: 09/18/16 Procedure: Bronchoscopy Recent Vitals: Last Vital Signs Temp 98.7 F 09/18/16 07:44 Pulse 69 09/18/16 07:44 Resp 18 09/18/16 07:44 BP 100/63 09/18/16 07:44 Pulse Ox 94 09/18/16 07:44 H&P (including ROS) documented in medical record: Yes Dietary Status: NPO after Midnight Possible difficult airway: No ASA Classification *see protocol: CLASS III-Severe systemic disease Plan of Care: Pt appropriate candidate for procedure/moderate/conscious sedation , Risks/benefits of procedure/sedation discussed w/ patient/family
[2016-09-18] MEDS ORDERED: 0.9 % Sodium Chloride 1,000 ML IVC SCH (08:15)
[2016-09-18] MEDS: Aspirin 81 MG TAB.CHEW PO SCH (08:21)
[2016-09-18] MEDS: Gabapentin 300 MG CAPSULE PO SCH ×3 (08:21→20:14)
[2016-09-18] MEDS: Metoprolol XL (24 HR) Succ 50 MG TAB.ER.24H PO SCH (08:21)
[2016-09-18] MEDS: Insulin LISPRO 300 UNITS/3 ML VIAL SQ SCH ×2 (08:21→17:09)
[2016-09-18] MEDS: Lisinopril 20 MG TABLET PO SCH (08:21)
[2016-09-18] MEDS ORDERED: *HR* FentaNYL (PF) 100 MCG/2 ML VIAL ONE (09:53)
[2016-09-18] MEDS ORDERED: *HR* Midazolam HCl 5 MG/5 ML VIAL IVP ONE (09:53)
[2016-09-18] MEDS ORDERED: Lidocaine Viscous Oral Soln 15 ML SOLUTION ONE (09:54)
--- NOTE | 2016-09-18 09:55 | Internal Med Progress Note ---
Date of Encounter: 09/18/16 Time of Encounter: 09:52 - Assessment and plan (1) Pneumonia Current Visit: Yes Status: Suspected Assessment and plan: Patient with acute on chronic hypoxic respiratory failure secondary to multifocal pneumonia Most-likely atypical There is also concern for ILD Leukocytosis has resolved Continue Levoflox For bronch today, follow biopsies and BAL Pulm eval appreciated Qualifiers: Pneumonia type: due to unspecified organism Laterality: bilateral Lung location: unspecified part of lung Qualified Code(s): J18.9 - Pneumonia, unspecified organism (2) CAD (coronary artery disease) Current Visit: Yes Status: Chronic Assessment and plan: Continue aspirin, statin, beta mariela and LYNN inhibitor. Qualifiers: Coronary Disease-Associated Artery/Lesion type: unspecified vessel or lesion type [place] vs. transplanted heart: unspecified whether [place] or transplanted heart Associated angina: without angina Qualified Code(s): I25.10 - Atherosclerotic heart disease of [place] coronary artery without angina pectoris (3) Diabetes Current Visit: Yes Status: Chronic Assessment and plan: A1C 5.8 Blood sugars are well controlled. No changes to insulin regimen at this time. Continue ADA diet Qualifiers: Diabetes mellitus type: type 2 Diabetes mellitus complication status: with unspecified complications Diabetes mellitus ocean transportation intermediary insulin use: unspecified mcfp insulin use status Qualified Code(s): E11.8 - Type 2 diabetes mellitus with unspecified complications (4) H/O acute renal failure Current Visit: Yes Status: Resolved Assessment and plan: Creatinine remains essentially stable. Will follow renal function. (5) Interstitial lung disorders Current Visit: Yes Status: Acute Assessment and plan: Follow biopsies, BAL, broncoscopy findings Pulmonology is following (6) Hypoxia Current Visit: Yes Status: Acute Assessment and plan: Acute on Chronic Continue supplements and continue to wean off - Subjective Interval history: Patient is evaluated at bedside He has been managed for acute on chronic hypoxic respiratory failure secondary to possible atypical pneumonia rule out interstitial lung disease In addition has ANASTACIA that has resolved, coronary artery disease and diabetes mellitus. Seen at bedside with partner, continues to complain of difficulty breathing and still requiring oxygen. Pleuritic chest pain has decreased in intensity. He denies any other complaint and is currently awaiting bronchoscopy. - Constitutional Vitals: Temp Pulse Resp BP Pulse Ox 98.7 F 69 18 100/63 94 09/18/16 07:44 09/18/16 07:44 09/18/16 07:44 09/18/16 07:44 09/18/16 07:44 General appearance: Present: A&O X 3, pleasant, no acute distress, answers questions appropriately - Head Head exam: Present: atraumatic, normocephalic - Eye Eye exam: Present: PERRL, conjuntiva pink, sclera anicteric Pupils: Present: PERRL - Neck Neck exam general surgery: Present: supple, trachea midline. Absent: lymphadenopathy - Respiratory Respiratory exam: Absent: accessory muscle use, rales, rhonchi, wheezes Additional comments: Dry inspiratory crackles bilaterally - Cardiovascular Cardiovascular exam: Present: RRR, +S1, +S2. Absent: diastolic murmur, gallop, rubs, systolic murmur - GI/Abdominal GI/Abdominal exam: Present: normal bowel sounds, soft, no peritoneal signs. Absent: distended, tenderness - Extremities Exam Extremities exam: Present: warm, radial pulses palpable and symetrical. Absent : calf tenderness, cyanotic, pedal edema - Neurological Exam Neurological exam: Present: alert, CN II-XII intact, oriented X3, no focal deficits. Absent: pronater drift, facial droop, speech deficit - Skin Skin exam: Present: dry, intact Internal Medicine: Result - Labs CBC & Chem 7: 09/17/16 03:36 09/17/16 03:36 - ABG Interpretation ABG results: PT/INR, D-dimer D-Dimer 7630 ng/mLFEU (0-500) H 09/14/16 14:52 Consult Discharge Plan - Plan [facility]errals: [facility] [Primary Care Provider] - 09/25/16 2:00 pm (Please follow up as schedule..)
[2016-09-18] MEDS: *HR* Midazolam HCl 5 MG/5 ML VIAL IVP PRN ×4 (10:36→10:43)
[2016-09-18] MEDS: *HR* FentaNYL (PF) 100 MCG/2 ML VIAL IVP PRN ×4 (10:36→10:50)
[2016-09-18] MEDS ORDERED: *HR* EPINEPHrine 1 MG/10 ML SYRINGE ONE (11:23)
[2016-09-18 11:34] LABS: Source of Body Fluid LEFT LOWER LOBE LUNG
[2016-09-18 14:16] LABS: Source of Body Fluid RIGHT LOWER LOBE LUN
[2016-09-18 14:17] LABS: Appearance of Body Fluid Cloudy (Clear); Volume of Body Fluid 13 mL
[2016-09-18 14:40] LABS: Appearance of Body Fluid Hazy (Clear); Volume of Body Fluid 17 mL
[2016-09-18] MEDS: Levofloxacin 500 MG/100 ML 500 MG/100 ML BAG IVPB SCH (17:59)
[2016-09-18] MEDS ORDERED: Insulin LISPRO 300 UNITS/3 ML VIAL SQ SCH (21:00)
[2016-09-18] MEDS: Temazepam 15 MG CAPSULE PO PRN (23:10)
[2016-09-19 04:39] LABS: Basophils # 0.1 K/mcL (0.0-0.2); Basophils % 0.8 %; Eosinophils # 0.6 K/mcL (0.0-0.6); Eosinophils % 6.8 %; Hematocrit 32.8 % (37.5-50.1); Hemoglobin 10.1 g/dL (12.9-16.9); Immature Granulocytes % 1.2 % (0-4); Lymphocytes # 1.3 K/mcL (0.6-4.6); Lymphocytes % 15.1 %; Mean Corpuscular HGB Conc 30.8 g/dL (31.6-35.5); Mean Corpuscular Hemoglobin 26.9 pg (28.0-33.3); Mean Corpuscular Volume 87.5 fL (83.0-100.0); Mean Platelet Volume 8.8 fL (9.4-12.4); Monocytes # 0.8 K/mcL (0.0-1.3); Monocytes % 9.9 %; Neutrophils # 5.5 K/mcL (1.6-8.9); Platelet Count 274 K/mcL (140-400); Red Blood Count 3.75 M/mcL (4.19-5.50); Red Cell Distribution Width 13.6 % (11.5-14.5); Segmented Neutrophils % 66.2 %
[2016-09-19 04:55] LABS: BUN/Creatinine Ratio 24 (6-26); Blood Urea Nitrogen 28 mg/dL (8-26); Calcium 9.4 mg/dL (8.6-10.8); Carbon Dioxide 33 mEq/L (19-29); Chloride 97 mEq/L (98-109); Glucose 103 mg/dL (70-99); Osmolality,Calculated 290 (280-300); Potassium 4.6 mEq/L (3.5-4.5); Sodium 137 mEq/L (136-145); eGFR For African Americans > 60 (> 60); eGFR For Non-African Americans > 60 (> 60)
[2016-09-19] MEDS: *HR* Heparin 5,000 UNIT/ML VIAL SQ SCH (06:30)
[2016-09-19 07:54] LABS: Myeloperoxidase Ab 0 AU/mL (0-19); Serine Protease-3 Antibody 0 AU/mL (0-19)
[2016-09-19 07:59] LABS: ANA IgG by ELISA NONE DETECTED (None Detected)
[2016-09-19] MEDS: Insulin LISPRO 300 UNITS/3 ML VIAL SQ SCH ×2 (08:28→11:19)
[2016-09-19] MEDS: Gabapentin 300 MG CAPSULE PO SCH (08:28)
[2016-09-19] MEDS: Aspirin 81 MG TAB.CHEW PO SCH (08:28)
[2016-09-19] MEDS: Metoprolol XL (24 HR) Succ 50 MG TAB.ER.24H PO SCH (08:29)
[2016-09-19] MEDS: Lisinopril 20 MG TABLET PO SCH (08:29)
--- NOTE | 2016-09-19 10:31 | Internal Med Progress Note ---
Date of Encounter: 09/19/16 Time of Encounter: 10:29 - Assessment and plan (1) Pneumonia Current Visit: Yes Status: Suspected Assessment and plan: Patient with acute on chronic hypoxic respiratory failure secondary to multifocal pneumonia Most-likely atypical There is also concern for ILD Leukocytosis has resolved Continue Levoflox s/p bronch, biopsies and BAL Pulmonary eval appreciated Qualifiers: Pneumonia type: due to unspecified organism Laterality: bilateral Lung location: unspecified part of lung Qualified Code(s): J18.9 - Pneumonia, unspecified organism (2) CAD (coronary artery disease) Current Visit: Yes Status: Chronic Assessment and plan: Continue aspirin, statin, beta mariela and LYNN inhibitor. Qualifiers: Coronary Disease-Associated Artery/Lesion type: unspecified vessel or lesion type [place] vs. transplanted heart: unspecified whether [place] or transplanted heart Associated angina: without angina Qualified Code(s): I25.10 - Atherosclerotic heart disease of [place] coronary artery without angina pectoris (3) Diabetes Current Visit: Yes Status: Chronic Assessment and plan: A1C 5.8 Blood sugars are well controlled. No changes to insulin regimen at this time. Continue ADA diet Qualifiers: Diabetes mellitus type: type 2 Diabetes mellitus complication status: with unspecified complications Diabetes mellitus intermediate manager insulin use: unspecified intermediate manager insulin use status Qualified Code(s): E11.8 - Type 2 diabetes mellitus with unspecified complications (4) H/O acute renal failure Current Visit: Yes Status: Resolved Assessment and plan: Creatinine remains essentially stable. Will follow renal function. (5) Interstitial lung disorders Current Visit: Yes Status: Suspected Assessment and plan: Follow biopsies, BAL, broncoscopy findings Pulmonology is following (6) Hypoxia Current Visit: Yes Status: Chronic Assessment and plan: Acute on Chronic Continue supplements and continue to wean off - Subjective Interval history: Patient is evaluated at bedside He has been managed for acute on chronic hypoxic respiratory failure secondary to possible atypical pneumonia , rule out interstitial lung disease In addition has ANASTACIA that has resolved, coronary artery disease and diabetes mellitus. He is s/p bronchoscopy Sputum culture and gram stain preliminary negative. leukocytosis has resolved, chem is stable Biopsies X2, pending result - Constitutional Vitals: Temp Pulse Resp BP Pulse Ox 98.7 F 76 18 100/63 92 09/19/16 07:34 09/19/16 07:34 09/19/16 07:34 09/19/16 07:34 09/19/16 08:30 General appearance: Present: A&O X 3, pleasant, no acute distress, answers questions appropriately - Head Head exam: Present: atraumatic, normocephalic - Eye Eye exam: Present: PERRL, conjuntiva pink, sclera anicteric Pupils: Present: PERRL - Neck Neck exam general surgery: Present: supple, trachea midline. Absent: lymphadenopathy - Respiratory Respiratory exam: Absent: accessory muscle use, rales, rhonchi, wheezes Additional comments: Dry inspiratory crackles bilaterally - Cardiovascular Cardiovascular exam: Present: RRR, +S1, +S2. Absent: diastolic murmur, gallop, rubs, systolic murmur - GI/Abdominal GI/Abdominal exam: Present: normal bowel sounds, soft, no peritoneal signs. Absent: distended, tenderness - Extremities Exam Extremities exam: Present: warm, radial pulses palpable and symetrical. Absent : calf tenderness, cyanotic, pedal edema - Neurological Exam Neurological exam: Present: alert, CN II-XII intact, oriented X3, no focal deficits. Absent: pronater drift, facial droop, speech deficit - Skin Skin exam: Present: dry, intact Internal Medicine: Result - Labs CBC & Chem 7: 09/19/16 04:08 09/19/16 04:08 Labs: Short CBC 09/19/16 Range/Units 04:08 WBC 8.4 (4.3-11.1) K/mcL Hgb 10.1 L (12.9-16.9) g/dL Hct 32.8 L (37.5-50.1) % Plt Count 274 (140-400) K/mcL Neutrophils # 5.5 (1.6-8.9) K/mcL BMP 09/19/16 04:08 Sodium 137 Potassium 4.6 H Chloride 97 L Carbon Dioxide 33 H BUN 28 H Creatinine 1.17 Glucose 103 H Calcium 9.4 - ABG Interpretation ABG results: PT/INR, D-dimer D-Dimer 7630 ng/mLFEU (0-500) H 09/14/16 14:52 - Impressions Impressions Chest X-Ray 09/18/16 10:16 IMPRESSION: Patchy interstitial and alveolar infiltrates bilaterally throughout the lung suspicious for multifocal pneumonia. D/ / Nato Berrios MD / Nato Berrios MD Interpreting Provider: Nato Berrios MD Fluoroscopy 09/18/16 10:16 IMPRESSION: Fluoroscopy is utilized for the purposes of bronchoscopy. D/ / 09/18/2016 11:30:13 Britton Reeves MD / aileen Interpreting Provider: Britton Reeves MD Consult Discharge Plan - Plan [facility]errals: [facility] [[facility] Provider[facility] - 09/25/16 2:00 pm (Please follow up as schedule..) Prescriptions: Levofloxacin 500 mg PO DAILY #2 tablet
[2016-09-19 12:02] VITALS: BP 102/66
--- NOTE | 2016-09-19 14:16 | Discharge Summary ---
Date of Encounter: 09/19/16 Time of Encounter: 14:14 - Discharge Diagnosis (1) Pneumonia Priority: Primary Status: Suspected Comments: Patient with acute on chronic hypoxic respiratory failure secondary to multifocal pneumonia Most-likely atypical There is also concern for ILD Leukocytosis has resolved Continue Levoflox at home, he received 6 days, inpatient, will give one more day at home s/p bronch, biopsies and BAL Preliminary cultures are negative Biopsy reports are pending I have discussed with Dr. Tate and he agrees with discharging this patient to follow up with him in the office in 2-3 weeks Plan of care discussed with patient and his spouse, verbalized understanding Qualifiers: Pneumonia type: due to unspecified organism Laterality: bilateral Lung location: unspecified part of lung Qualified Code(s): J18.9 - Pneumonia, unspecified organism (2) CAD (coronary artery disease) Priority: Secondary Status: Chronic Qualifiers: Coronary Disease-Associated Artery/Lesion type: unspecified vessel or lesion type [place] vs. transplanted heart: unspecified whether [place] or transplanted heart Associated angina: without angina Qualified Code(s): I25.10 - Atherosclerotic heart disease of [place] coronary artery without angina pectoris (3) Diabetes Priority: Secondary Status: Chronic Comments: A1C 5.8 Blood sugars are well controlled. No changes to insulin regimen at this time. Continue ADA diet Qualifiers: Diabetes mellitus type: type 2 Diabetes mellitus complication status: with unspecified complications Diabetes mellitus terminal carman insulin use: unspecified long-term insulin use status Qualified Code(s): E11.8 - Type 2 diabetes mellitus with unspecified complications (4) H/O acute renal failure Priority: Primary Status: Resolved (5) Interstitial lung disorders Priority: Primary Status: Suspected (6) Hypoxia Priority: Secondary Status: Chronic - Discharge Medications Home Medications: Aspirin 325 mg PO DAILY 08/28/16 [History] Gabapentin [Neurontin] 900 mg PO TID 08/28/16 [History] Lisinopril [Zestril] 20 mg PO DAILY 08/28/16 [History] Metoprolol XL (24 HR) Succ [Toprol Xl] 100 mg PO DAILY 08/28/16 [History] Naproxen [Naprosyn] 500 mg PO BID 08/28/16 [History] [place]-3/Dha/Epa/Fish Oil [Fish Oil 1,000 mg Softgel] 1,000 mg PO DAILY 08/28/16 [History] Omeprazole [PriLOSEC] 20 mg PO DAILY 08/28/16 [History] Rosuvastatin [Crestor] 40 mg PO HS 08/28/16 [History] Sertraline [Zoloft] 100 mg PO BID 08/28/16 [History] Temazepam [Restoril] 15 mg PO HS 08/28/16 [History] Cyclobenzaprine [Flexeril] 10 mg PO TID PRN 09/14/16 [History] Levofloxacin 500 mg PO DAILY #2 tablet 09/19/16 [Rx] Allergies/Adverse Reactions: Allergies Iodinated Contrast Media - Oral and Adverse Reaction (Verified 09/27/15 23:59) Anaphylaxis simvastatin Adverse Reaction (Verified 09/27/15 23:59) Cramping of the Muscles Date of admission: 09/14/16 17:14 Primary care physician: [facility] Discharging clinician: Lionel Milan Anticipated date of discharge: 09/19/16 - Patient Status Disposition: Home, Self-Care Condition: Good Functional capacity at discharge: independent ambulation Overall status at discharge: patient is progressing back to baseline - Discharge Instructions Follow Up With: [facility] [[facility] Provider[facility] - 09/25/16 2:00 pm (Please follow up as schedule..) - Diet and Activity Activity: resume usual activities as tolerated, wear oxygen at all times Diet: diabetic diet Interval History: See below Hospital course: Mr. Bowman is a 66 year old male who has been managed for acute on chronic hypoxic respiratory failure secondary to possible atypical pneumonia , rule out interstitial lung disease In addition he has ANASTACIA that has resolved, coronary artery disease and diabetes mellitus. His CXR findings suggest suspected ILD He is s/p bronchoscopy and lung biopsies, which was well tolerated He is on home O2 and has been requiring 1-2L to keep his saturation over 90, continue same His cultures have been negative to date he has received 6 days of levoflox inpatient He is stable to be discharged home to complete one more day at home He will follow up with Pulmonary as out-patient Plan of care discussed, verbalized understanding - Time Spent with Patient Total time spent providing and/or coordinating discharge services: Less than 30 minutes - Constitutional Vitals: Temp Pulse Resp BP Pulse Ox 98.5 F 78 17 102/66 92 09/19/16 12:00 09/19/16 12:00 09/19/16 12:00 09/19/16 12:00 09/19/16 12:00 General appearance: Present: A&O X 3, pleasant, no acute distress, answers questions appropriately - Head Head exam: Present: atraumatic, normocephalic - Eye Eye exam: Present: PERRL, conjuntiva pink, sclera anicteric Pupils: Present: PERRL - Neck Neck exam general surgery: Present: supple, trachea midline. Absent: lymphadenopathy - Respiratory Additional comments: Dry inspiratory crackles at the bases bilaterally - Cardiovascular Cardiovascular exam: Present: RRR, +S1, +S2. Absent: diastolic murmur, gallop, rubs, systolic murmur - GI/Abdominal GI/Abdominal exam: Present: normal bowel sounds, soft, no peritoneal signs. Absent: distended, tenderness - Extremities Exam Extremities exam: Present: warm, radial pulses palpable and symetrical. Absent : calf tenderness, cyanotic, pedal edema - Neurological Exam Neurological exam: Present: alert, CN II-XII intact, oriented X3, no focal deficits. Absent: pronater drift, facial droop, speech deficit - Skin Skin exam: Present: dry, intact
--- NOTE | 2016-09-19 17:17 | Pulmonology Progress Note ---
Date of Encounter: 09/19/16 Time of Encounter: 12:45 Assessment and Plan (1) Pneumonia Status: Suspected Patient will be discharged home and they give him my information and also discussed with the primary team that he can follow up as outpatient since his biopsy result is still pending. The patient clinically is much better and wean of O2 as tolerated then this can be also evaluated as outpatient. Qualifiers: Pneumonia type: due to unspecified organism Laterality: bilateral Lung location: unspecified part of lung Qualified Code(s): J18.9 - Pneumonia, unspecified organism (2) Hypoxia Status: Chronic Keep SPO2 around 90% and wean off FIO2 as tolerated. Mrs. This is improving as well. Subjective Principal diagnosis: Dyspnea Interval history: Patient is feeling better and he denies any hemoptysis Objective PUL Vital signs: Last Vital Signs Temp 98.5 F 09/19/16 12:00 Pulse 78 09/19/16 12:00 Resp 17 09/19/16 12:00 BP 102/66 09/19/16 12:00 Pulse Ox 92 09/19/16 12:00 General appearance: no acute distress Eyes: nonicteric ENT: oropharynx moist Neck: supple, no lymphadenopathy Effort: normal Auscultation: bilateral: clear Percussion: bilateral: not dull Cardiovascular: regular rate and rhythm Gastrointestinal: normoactive bowel sounds Extremities: no cyanosis normal mental status, non-focal exam mood appropriate Results - Laboratory Findings CBC and BMP: 09/19/16 04:08 09/19/16 04:08 PT/INR, D-dimer D-Dimer 7630 ng/mLFEU (0-500) H 09/14/16 14:52 Abnormal lab findings: Abnormal lab results RBC 3.75 M/mcL (4.19-5.50) L 09/19/16 04:08 Hgb 10.1 g/dL (12.9-16.9) L 09/19/16 04:08 Hct 32.8 % (37.5-50.1) L 09/19/16 04:08 MCH 26.9 pg (28.0-33.3) L 09/19/16 04:08 MCHC 30.8 g/dL (31.6-35.5) L 09/19/16 04:08 MPV 8.8 fL (9.4-12.4) L 09/19/16 04:08 ESR >= 130 mm/hr (0-10) H 09/15/16 08:22 D-Dimer 7630 ng/mLFEU (0-500) H 09/14/16 14:52 Potassium 4.6 mEq/L (3.5-4.5) H 09/19/16 04:08 Chloride 97 mEq/L (98-109) L 09/19/16 04:08 Carbon Dioxide 33 mEq/L (19-29) H 09/19/16 04:08 BUN 28 mg/dL (8-26) H 09/19/16 04:08 Glucose 103 mg/dL (70-99) H 09/19/16 04:08 POC Glucose 109 (58-89) H 09/18/16 21:17 C-Reactive Protein 83 mg/L (Less than 5) H 09/15/16 08:22 Fluid Appearance Hazy (Clear) A 09/18/16 11:33 - Microbiology Findings Microbiology Findings: Microbiology, Last 48 Hours 09/18/16 11:33 Acid Fast Stain - Final Left Lower Lobe Lung 09/18/16 11:33 Acid Fast Stain - Final Right Lower Lobe Lung 09/18/16 11:33 Respiratory Culture - Preliminary Right Lower Lobe Lung No growth. 09/18/16 11:33 Respiratory Culture - Preliminary Left Lower Lobe Lung Normal upper respiratory tract brayden. No apparent pathogens isolated. 09/18/16 11:33 Gram Stain - Final Left Lower Lobe Lung 09/18/16 11:33 Gram Stain - Final Right Lower Lobe Lung - Clinical Findings Intake & Output: Intake & Output 09/19/16 09/19/16 09/19/16 07:59 15:59 23:59 Intake Total 0 / 0 360 / 360 Output Total 0 / 0 Balance 0 / 0 360 / 360 Weight 67.948 kg Consult Discharge Plan - Plan Instructions: Levofloxacin (By mouth), Community-Acquired Pneumonia, Shipping Receiving Clerk (GEN) Referrals: Karthik Walker MD [Partnered Physician] - [facility],PC[facility] [Primary Care Provider] - 09/25/16 2:00 pm (Please follow up as schedule..) Prescriptions: Levofloxacin 500 mg PO DAILY #2 tablet
[2016-09-25 11:37] LABS: T. vulgaris 1 Ab Precipitin NONE DETECTED (None Detected)
== END 2016-09-19 16:37 | disposition home or self-care (01) | DRG 166 ==
LOC: EMEROO 14:26 → SUATTDRO 17:14 → 2ANU 17:14
PROVIDERS: ADMIT Internal Medicine Endocrinology, Diabetes & Metabolism; ATTEND Internal Medicine